=== PATIENT | male | born 1935 | race Caucasian/White ===

== ENCOUNTER → 2020-03-24 10:21 | Outpatient (BNVA) | payer OTHER, SELFPAY | PROVIDERS: Referring Provider Emergency Medicine Emergency Medical Services; Visit Provider Specialist | DX: M25.511 Pain in right shoulder (principal) | CPT/HCPCS: 73030 ==

== ENCOUNTER → 2021-04-12 08:02 | Outpatient (BNVA) | payer OTHER, SELFPAY | PROVIDERS: Visit Provider Specialist | DX: M19.012 Primary osteoarthritis, left shoulder (principal); M19.011 Primary osteoarthritis, right shoulder | CPT/HCPCS: 73030 ==

== ENCOUNTER 2021-08-30 07:39 | Outpatient (CLI) | payer OTHER, SELFPAY ==
--- NOTE | 2021-08-30 | MR_ITS ---
WS: [id number] MRI HEAD WITH CONTRAST TECHNIQUE: Sagittal T1, T2 axial, T2 axial FLAIR, axial susceptibility weighted imaging, axial diffus ion weighted images, and coronal T2 images were obtained. Pre and post-T1 axial and post T1 coronal i mages. ADC and FSPGR images. CLINICAL INFORMATION: MEMORY COMPARISON: None. FINDINGS: No evidence of restricted diffusion to suggest acute ischemia. Ventricular system and basal cisterns are patent. Mild small vessel changes with mild to moderate parenchymal volume loss. Normal posterior fossa. Normal vascular flow voids at the skull base. No extra-axial fluid collections. No evidence o f mass or mass effect. Paranasal sinuses are well aerated. Partial opacification mastoid air cells bi laterally. No hemosiderin on susceptibly weighted images. Advanced disproportionate atrophy involving the temporal lobes and hippocampal formations. This is as ymmetric compared to the frontal and parietal parenchymal volume loss which is mild. Mild small vesse l changes in the monet. No abnormal gadolinium enhancement. Normal optic chiasm and pituitary infundib ulum. Normal dural venous sinuses. MR/MR head wo/w con [id number] IMPRESSION: 1. No evidence of restricted diffusion to suggest acute ischemia. 2. Mild small vessel changes with mild to moderate parenchymal volume loss. 3. Advanced bilateral atrophy involving the temporal lobes and hippocampal for mations. Recommend correlation for neurodegenerative disease including Alzheime r's dementia. Frontal and parietal occipital parenchymal volume is relatively w ell-preserved. 4. Partial opacification mastoid air cells bilaterally. 5. No abnormal gadolinium enhancement. 6. Normal optic chiasm and pituitary infundibulum. 7. No hemosiderin on susceptibly weighted images.
== END 2021-08-30 07:40 | disposition home or self-care (01) ==
LOC: RADSHAW 07:42
PROVIDERS: PCP Emergency Medicine Emergency Medical Services; Visit Provider Emergency Medicine Emergency Medical Services
DX: R41.3 Other amnesia (principal); G31.9 Degenerative disease of nervous system, unspecified
CPT/HCPCS: 70553; A9579

== ENCOUNTER → 2022-02-22 08:10 | Outpatient (BNVA) | payer OTHER, SELFPAY | PROVIDERS: PCP Emergency Medicine Emergency Medical Services; Visit Provider Specialist | DX: Z71.89 Other specified counseling (principal); M19.012 Primary osteoarthritis, left shoulder; M19.011 Primary osteoarthritis, right shoulder | CPT/HCPCS: 20610; J1100; J2795; J3301 ==

== ENCOUNTER → 2022-05-31 08:07 | Outpatient (BNVA) | payer OTHER, SELFPAY | PROVIDERS: PCP Emergency Medicine Emergency Medical Services; Visit Provider Specialist | DX: M19.011 Primary osteoarthritis, right shoulder (principal); M19.012 Primary osteoarthritis, left shoulder | CPT/HCPCS: 20610; J1100; J2795; J3301 ==

== ENCOUNTER 2022-06-01 16:16 | Emergency (ER) | payer OTHER, SELFPAY ==
[2022-06-01 16:26] VITALS: BP 176/82; PULSE 74; RESP 16; TEMP 36.9; O2SAT 98
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
--- NOTE | 2022-06-01 16:29 | ECG_ITS ---
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 Measurements Intervals [place] Rate: 88 P: 48 MT: 154 QRS: -7 QRSD: 87 T: 62 QT: 331 QTc: 401 Interpretive Statements SINUS RHYTHM MODERATE VOLTAGE CRITERIA FOR LVH, CONSIDER NORMAL VARIANT [MEETS CRITERIA IN ONE OF: R(aVL), S(V1), R(V5), R(V5/V6)+S(V1)] POSSIBLE ANTERIOR MYOCARDIAL INFARCTION , OF INDETERMINATE AGE [30 ms Q WAVE IN V3/V4, OR R < 0.2 mV IN V4] No previous ECG available for comparison Electronically Signed On 06-01-2022 19:09:42 CDT by Froy Lizarraga M.D. [id number]
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
--- NOTE | 2022-06-01 16:55 | PC.NURSE ---
PT PLACED ON CONTINUOUS NIBP, SPO2, AND CM
[2022-06-01 17:00] VITALS: BP 161/85; PULSE 94; O2SAT 97
[2022-06-01] MEDS: ondansetron 2 mg/ML SDV 2 mL 4 MG IVP (17:04)
[2022-06-01 18:09] LABS: Basophils # 0.1 10^3/uL (0.0-0.1); Basophils % 0.2 %; Hematocrit 44.4 % (42.0-52.0); Hemoglobin 14.4 g/dL (11.7-16.6); Lymphocytes # 0.7 10^3/uL (0.8-4.8); Lymphocytes % 2.4 %; Mean Corpuscular HGB Conc 32.4 g/dL (30.0-36.0); Mean Corpuscular Hemoglobin 30.4 pg (28.0-34.0); Mean Corpuscular Volume 93.7 fl (80-94); Mean Platelet Volume 9.6 fL (7.4-10.4); Monocytes # 1.9 10^3/uL (0.2-0.9); Monocytes % 6.4 %; Neutrophils % 89.7 %; Nucleated Red Blood Cells % 0 %; Platelet Count 594 10^3/cmm (130-400); Red Blood Count 4.74 10^6/uL (4.1-5.3); Red Cell Distribution Width 13.2 % (12.1-15.1)
[2022-06-01 18:12] LABS: White Blood Count 30.2 10^3/uL (4.0-10.0)
[2022-06-01 18:24] LABS: Alanine Aminotransferase 38 U/L (0-41); Albumin Level 3.8 g/dL (3.5-5.2); Alkaline Phosphatase 79 U/L (40-130); Anion Gap 14.4 (5-19); Aspartate Amino Transferase 34 U/L (0-40); Blood Urea Nitrogen 25 mg/dL (8-23); Calcium 9.1 mg/dL (8.5-10.5); Carbon Dioxide 22 mmol/L (22-29); Chloride 104 mmol/L (98-107); Globulin 2.9 g/dL (1.3-4.6); Glucose 130 mg/dL (65-115); Osmolality Calculated 288 mOsm/kg (285-295); Potassium 4.4 mmol/L (3.5-5.1); Sodium 136 mmol/L (136-145); Total Bilirubin 0.6 mg/dL (0.15-1.2); Total Protein 6.7 g/dL (6.6-8.7)
[2022-06-01 18:30] VITALS: BP 150/77; PULSE 94; RESP 20; O2SAT 97
[2022-06-01] MEDS: fentaNYL 50 mcg/mL INJ 2mL IVP (19:15)
[2022-06-01] MEDS: tetanus-dipt-pertussis 0.5 mL SDV IM (19:15)
== END 2022-06-01 19:29 | disposition home or self-care (01) ==
PROVIDERS: Emergency Provider Family Medicine; PCP Emergency Medicine Emergency Medical Services
DX: Z04.1 Encounter for examination and observation following transport accident (principal)
CPT/HCPCS: 71045; 72040; 73110; 73130; 73610; 80053; 85025; 90471; 90715; 93005; 96374; 96375; 99285; J2405; J3010

== ENCOUNTER → 2022-08-30 08:01 | Outpatient (BNVA) | payer OTHER, SELFPAY | PROVIDERS: PCP Emergency Medicine Emergency Medical Services; Visit Provider Specialist | DX: M19.011 Primary osteoarthritis, right shoulder (principal); M19.012 Primary osteoarthritis, left shoulder; Z71.89 Other specified counseling | CPT/HCPCS: 20610; J1100; J2795; J3301 ==

== ENCOUNTER → 2022-11-29 10:31 | Outpatient (BNVA) | payer OTHER, SELFPAY | PROVIDERS: PCP Emergency Medicine Emergency Medical Services; Visit Provider Specialist | DX: M19.011 Primary osteoarthritis, right shoulder (principal); M19.012 Primary osteoarthritis, left shoulder | CPT/HCPCS: 20610; J2795; J3301 ==

== ENCOUNTER → 2023-02-02 11:44 | Outpatient (BNVA) | payer MEDICARE, SELFPAY | PROVIDERS: PCP Emergency Medicine Emergency Medical Services; Visit Provider Emergency Medicine | DX: R41.0 Disorientation, unspecified (principal) | CPT/HCPCS: 81000 ==

== ENCOUNTER 2023-02-26 10:18 | Outpatient (CLI) | payer OTHER, SELFPAY ==
--- NOTE | 2023-02-26 10:34 | CT_ITS ---
WS: [id number] CT CHEST TECHNIQUE: Contrast enhanced CT of the chest with coronal and sagittal reformatted images. CLINICAL INFORMATION: XRAY SHOWS ABNORMAL AREA TO HILUM (RIGHT) COMPARISON: None. DLP: 194.[address] scans at [facility] use at least one of these dose optimization techniques: automated e xposure control; mA and/or kV adjustment per patient size (includes targeted exams where dose is matc hed to clinical indication); or iterative reconstruction. FINDINGS: Lungs are well aerated. No acute pulmonary infiltrates. No focal pneumonia or pleural fluid. No media stinal or hilar lymphadenopathy. No axillary lymphadenopathy. Hazy groundglass nodule RIGHT lower lob e posterior laterally measuring 5.8 mm. Normal caliber thoracic aorta. Aortic calcification. Coronary calcification. Prominent proximal main pulmonary arteries can be seen with pulmonary arterial hypertension. Coronary calcification. Tiny esophageal hiatal hernia. Partially visualized hepatic cysts. Diffuse fatty infiltration liver. Hepatomegaly. Splenic artery calcification. Adrenal glands are normal. Bilateral renal cysts partiall y visualized. Mild thoracic curve. Mild thoracic kyphosis. Anterior hypertrophic changes thoracic spi ne. Normal caliber upper abdominal aorta. Moderate stenosis at the celiac origin which is patent. SMA is patent. CT/CT chest w con* [id number] IMPRESSION: 1. No mediastinal or hilar lymphadenopathy. 2. Prominent main pulmonary arteries can be seen with pulmonary arterial hyper tension. 3. Lungs are well aerated. No acute pulmonary infiltrates. 4. Slight hazy atelectasis in the lung bases. 5. Hazy groundglass nodule RIGHT lower lobe posterior laterally measuring 5.8 mm. Recommend 6 month follow-up chest CT. 6. Numerous small hepatic cysts partially visualized. This can be followed up with contrast-enhanced CT abdomen pelvis.
[2023-02-26 11:13] LABS: Blood Urea Nitrogen 7 mg/dL (8-23)
[2023-02-26] MEDS: iohexol 350 mg/mL 500 mL Btl (per mL) IV (11:19)
== END 2023-02-26 10:19 | disposition home or self-care (01) ==
LOC: RAD 10:22
PROVIDERS: PCP Emergency Medicine Emergency Medical Services; Visit Provider Emergency Medicine Emergency Medical Services
DX: J98.11 Atelectasis (principal); R91.1 Solitary pulmonary nodule; K76.89 Other specified diseases of liver
CPT/HCPCS: 71260; 82565; 84520; Q9967

== ENCOUNTER → 2023-03-14 09:50 | Outpatient (BNVA) | payer OTHER, SELFPAY | PROVIDERS: PCP Emergency Medicine Emergency Medical Services; Visit Provider Specialist | DX: M19.011 Primary osteoarthritis, right shoulder (principal); M19.012 Primary osteoarthritis, left shoulder | CPT/HCPCS: 20610; J1100; J2795; J3301 ==

== ENCOUNTER 2023-04-02 09:45 | Outpatient (CLI) | payer OTHER, SELFPAY ==
[2023-04-02 10:50] VITALS: BMI 21.4
--- NOTE | 2023-04-02 10:53 | ECG_ITS ---
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 Interpretive Statements NAME OF STUDY: LEXISCAN SESTAMIBI STRESS TEST INDICATION: Dyspnea on exertion PROCEDURE: At the baseline, the blood pressure was 134/58 mmHg with a heart rate of 75 bpm and oxygen saturation 95%. The electrocardiogram showed sinus rhythm, normal axis. Poor anterior R wave progression. The Lexiscan was infused over a period of 20 seconds. A total of 0.4 milligrams of Lexiscan was infused. The stress phase was continued for a total of 5 minutes. Heart rate at the end of the stress phase was 101 bpm, oxygen saturation 95% with a blood pressure 118/48 mmHg. The EKG at the peak infusion revealed sinus tachycardia with no significant ST-T wave changes. Sestamibi was injected 20 seconds after the Lexiscan infusion. Blood pressure at the end of the recovery phase was 128/47 mmHg, oxygen saturation 95% with a heart rate of 94 beats per minute. CONCLUSION: 1. No significant EKG changes with the LexiScan infusion. 2. No LexiScan induced chest pain or cardiac arrhythmia. 3. Normal blood pressure and heart rate response. 4. Sestamibi/sestamibi perfusion scan pending; see separate report. Electronically Signed On 04-09-2023 17:31:07 CDT by Loan Pemberton M.D. [id number]
--- NOTE | 2023-04-02 10:54 | NMCV_ITS ---
NM za perf SPECT r/s* [id number] Garry Duval Age: 87 Gender: M : 1935 Exam Date: 04/02/2023 11:36 Ordering Phys: Garry Strong DO Technologist: STEFAN Forde Exam Location: [facility] Indications: SHORTNESS OF BREATH STRESS TEST Please see separate stress test report in [facility] for full findings IMAGE PROTOCOL Rest/Stress 1 Lexiscan Day Radiopharmaceutical Dose (mCi) Administration Site Administered by Rest: Tc-99m 11.0 IV STEFAN Brennan Sestamibi Stress:Tc-99m 32.8 IV STEFAN Brennan Sestamibi Rest: 02-Apr-2023 60 Discovery 630 Stress: 02-Apr-2023 30 Discovery 630 0.4mg Lexiscan. Supine position only as patient was unable to lay prone. SPECT RESULTS Technical Quality: Excellent Raw Data Analysis: Normal Image Corrections: No attenuation or motion correction applied Summed Stress Score: 0 Summed Rest Score: 2 Summed Difference Score: 0 PERFUSION FINDINGS SPECT images demonstrate homogeneous tracer distribution throughout the myocardium. FUNCTIONAL RESULTS (calculated via Gated SPECT) Stress Image LV EF (%): 69 Stress EDV (mL):70 TID: 0.95 Stress ESV (mL):22 FUNCTIONAL FINDINGS: The left ventricle is normal in size. Transient Ischemia Dilatation of 0.95. The left ventricular ejection fraction is normal with a value of 69%. There is normal left ventricular wall thickening. Normal end-diastolic and end-systolic volumes. IMPRESSIONS 1. Myocardial perfusion imaging is normal. 2. Overall left ventricular systolic function is normal without regional wall motion abnormalities, LVEF=69%. 3. EKG portion of the study will be reported separately. 4. Scan indicates low risk for cardiac events. Loan Pemberton MD (Electronically Signed) Final Date: 02 April 2023 17:31 S
[2023-04-02 12:19] VITALS: BP 128/47; PULSE 95
[2023-04-02] MEDS: regadenoson 0.4 Mg/5 ml Syringe IVP (12:21)
== END 2023-04-02 09:46 | disposition home or self-care (01) ==
LOC: CDL 09:45
PROVIDERS: PCP Emergency Medicine Emergency Medical Services; Visit Provider Emergency Medicine Emergency Medical Services
DX: R06.02 Shortness of breath (principal); R06.09 Other forms of dyspnea
CPT/HCPCS: 36415; 78452; 93017; 96374; A9500; J2785

== ENCOUNTER 2023-05-01 08:03 | Outpatient (CLI) | payer OTHER, SELFPAY ==
--- NOTE | 2023-05-01 08:11 | CT_ITS ---
WS: [id number] CT ABDOMEN AND PELVIS WITH CONTRAST HISTORY: HEPATIC CYSTS TECHNIQUE: Imaging performed of the abdomen and pelvis with IV contrast. Triple phase imaging of the abdomen. Coronal and sagittal reformats are submitted. All CT scans at [facility] use at leas t one of these dose optimization techniques: automated exposure control; mA and/or kV adjustment per patient size (includes targeted exams where dose is matched to clinical indication); or iterative rec onstruction. IV CONTRAST: Omnipaque 350; 100 mL IV. Oral contrast: No DLP: 905.46 mGy.cm COMPARISON: Prior chest CT 02/26/2023. Lower thorax: Lung bases are clear. Heart is normal size. Small hiatal hernia. Liver/biliary system: Normal size liver. There are numerous well-circumscribed low-attenuation masses throughout the liver involving both the LEFT and RIGHT lobes. These do not significantly enhanced. S ome of these are too small to characterize. The largest measures 11 mm. There is at most consistent w ith cyst. No solid mass. No bile duct dilatation. Normal portal vein. Gallbladder: Normal. No gallstones or wall thickening. No pericholecystic fluid. Pancreas: Normal size pancreas and pancreatic duct. No adjacent inflammation. Spleen: Normal size spleen. No mass or infarct. Adrenal glands: Normal. Right kidney: Normal size kidney. Several renal cysts are identified. The largest measures 9.0 x 7.2 x 9.1 cm. No renal obstruction. Left kidney: Normal size LEFT kidney with numerous acquired cysts. No renal obstruction. No solid mas s. Aorta: Moderate atherosclerotic plaque. No aneurysm. Mild stenosis proximal celiac axis. Lymphadenopathy: None. Free fluid: None. GI tract: Normal stomach. No small bowel obstruction. Mild constipation with tortuosity from longstan ding constipation. Normal appendix. There is a loop of colon extending into a patent LEFT inguinal ca nal. No obstructive pattern. Abdominal wall: Unremarkable abdominal wall. No hernia. Pelvis: No free fluid or adenopathy within the pelvis. Asymmetric thickening of the urinary bladder w all. Near diffuse thickening with a small diverticulum posteriorly. Marked prostate gland enlargement encroaching into the bladder. Bladder wall thickening does not appear masslike but is more likely fr om hypertrophy related to outlet obstruction. Heterogeneous prostate gland measures 5.8 x 4.2 cm and extends over a length of 6.3 cm. Bones: Straightening of the normal lumbar lordosis. Disc spaces are narrowed. Degenerative LEFT curva ture. IMPRESSION: 1. Numerous hepatic cysts. Some of these low-attenuation lesions are too small to characterize. No s olid masses are identified. 2. Bilateral renal cysts. 3. LEFT inguinal hernia contains a loop of nonobstructed colon. 4. Marked asymmetric bladder wall thickening and prostate gland enlargement. Bladder wall thickening is probably due to outlet obstruction from prostatic hypertrophy. 5. Moderate atherosclerotic plaque abdominal aorta.
[2023-05-01 08:34] LABS: Blood Urea Nitrogen 5 mg/dL (8-23)
[2023-05-01] MEDS: iohexol 350 mg/mL 500 mL Btl (per mL) IV (08:48)
== END 2023-05-01 08:04 | disposition home or self-care (01) ==
PROVIDERS: PCP Emergency Medicine Emergency Medical Services; Visit Provider Emergency Medicine Emergency Medical Services
DX: K76.89 Other specified diseases of liver (principal); N28.1 Cyst of kidney, acquired; K40.90 Unilateral inguinal hernia, without obstruction or gangrene, not specified as recurrent; N40.0 Benign prostatic hyperplasia without lower urinary tract symptoms; N32.9 Bladder disorder, unspecified; I70.0 Atherosclerosis of aorta
CPT/HCPCS: 74177; 82565; 84520; Q9967

== ENCOUNTER → 2023-05-15 10:29 | Outpatient (BNVA) | payer OTHER, SELFPAY | PROVIDERS: PCP Emergency Medicine Emergency Medical Services; Visit Provider Specialist | DX: M19.011 Primary osteoarthritis, right shoulder (principal); M19.012 Primary osteoarthritis, left shoulder; M12.811 Other specific arthropathies, not elsewhere classified, right shoulder; M12.812 Other specific arthropathies, not elsewhere classified, left shoulder | CPT/HCPCS: 73030; 99213 ==

== ENCOUNTER 2023-06-20 17:25 | Observation (INO) | payer OTHER, SELFPAY ==
[2023-06-20] VITALS (9 sets, daily range): BP systolic 146–174; BP diastolic 59–74; PULSE 96–111; RESP 15–27; TEMP 36.2–36.4; O2SAT 95–99; BMI 22.1
--- NOTE | 2023-06-20 18:52 | W.ED.GENADLT ---
HPI - General Adult General: Chief complaint: General Medical Stated complaint: possible reaction from meds Time Seen by Provider: 06/20/23 18:52 History of Present Illness: 87-year-old male presents emergency department with his family. Family members state that over the previous 4 days he has had increased confusion, fatigue and malaise. He does have an intermittent nonproductive cough. They state that he has recently been seen by his primary care provider at [facility] and was prescribed Flomax and a medication for his dementia. His family members are concerned that his increased confusion may be from an allergic reaction to the new medications. The family members state that despite his diagnosis of dementia he still lives at home by his self but his son is there multiple times throughout the day. The patient is a poor historian given his clinical presentation and his past medical history. Review of Systems General: Reports: ROS unobtainable due to medical condition (Dementia) [facility] ED PFSH: Medical History (Updated 06/20/23 @ 21:16 by Thad Carroll MD) Hypertension Social History Smoking and tobacco/nicotine status: never used tobacco/nicotine Alcohol intake: never Substance/Drug Use: never Physical Exam Const: GENERAL APPEARANCE: other (Unkept, malodorous, patient has stool to his bilateral lower extremities an) ORIENTATION/CONSCIOUSNESS: Yes oriented to person HENMT: COMMON NORMALS: normocephalic, atraumatic and moist oral mucous membranes HEAD & SCALP: normocephalic and atraumatic Eye: COMMON NORMALS: Equal, round and reactive pupils present PUPIL: Yes Equal, round and reactive pupils present Neck/C-Spine: COMMON NORMALS: no meningeal signs Resp: AUSCULTATION: rhonchi right lower Cardio: COMMON NORMALS: regular rhythm, S1 normal heart sound present, S2 normal heart sound present and Peripheral pulses 2+ throughout RATE: tachycardic RHYTHM: regular rhythm HEART SOUNDS: S1 normal heart sound present and S2 normal heart sound present PERIPHERAL PULSES: Peripheral pulses 2+ throughout GI: COMMON NORMALS: Normal to inspection, nondistended, normoactive bowel sounds present, Soft to palpation and non-tender PALPATION: Yes Soft to palpation Back/Pelvis: COMMON NORMALS: thoracic and lumbar spine normal to inspection, no thoracic nor lumbar tenderness and thoraco-lumbar ROM normal Extremity: COMMON NORMALS: normal to inspection, full ROM and capillary refill normal Neuro: SENSORIUM/ORIENTATION: Yes oriented to person and Yes Orientation impaired MENINGEAL SIGNS: Yes no meningeal signs MOTOR EXAM: 5/5 motor strength present throughout Psych: COMMON NORMALS: mental status grossly normal and cooperative MEMORY/COGNITION: Yes memory grossly intact and Yes cognition grossly intact Skin: COMMON NORMALS: no rashes or lesions noted GENERAL SKIN EXAM: no rashes or lesions noted Course Vital Signs: Vital signs: Vital Signs Temperature 97.1 F L 06/20/23 17:59 Pulse Rate 106 H 06/20/23 20:15 Respiratory Rate 21 H 06/20/23 20:15 Blood Pressure 155/74 06/20/23 20:15 Pulse Oximetry 99 06/20/23 20:15 Oxygen Delivery Me thod Room Air 06/20/23 20:15 MDM - General Adult Medical Decision Making Physical exam completed and documented, laboratory evaluation obtained to include a CBC for evaluation of infection, CMP to evaluate for electrolyte abnormalities and renal function, we will obtain a CT scan of the head given his mental status changes. I do not suspect this is a reaction to his new medications as he does appear to be significantly unkept and malodorous I suspect this is most likely given his clinical findings and physical exam a community-acquired pneumonia. I will obtain a twelve-lead EKG as well as a chest x-ray for evaluation. Differential Diagnosis CVA, electrolyte abnormality, infection, Medical Records I reviewed the patient's medical records. Lab Data I reviewed the patient's lab results. 06/20/23 19:14 06/20/23 19:[address] 06/20/23 18:56 IMPRESSION: 1. Negative for intracranial hemorrhage mass effect.. 2. Moderate diffuse white matter disease likely reflecting chronic microvascular ischemic changes. 3. 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 Laboratory Results WBC 27.29 10^3/uL (3.29-11.43) H 06/20/23 19:14 RBC 4.83 10^6/uL (3.85-5.65) 06/20/23 19:14 Hgb 15.10 g/dL (11.27-16.99) 06/20/23 19:14 Hct 44.9 % (37-53) 06/20/23 19:14 MCV 93.0 fl (82-101) 06/20/23 19:14 MCH 31.3 pg (27-33) 06/20/23 19:14 MCHC 33.6 g/dL (30-55) 06/20/23 19:14 RDW 12.9 % (12.1-15.1) 06/20/23 19:14 Plt Count 598 10^3/cmm (157-399) H 06/20/23 19:14 MPV 9.1 fL (7.4-10.4) 06/20/23 19:14 Neut % (Auto) 89.6 % 06/20/23 19:14 Lymph % (Auto) 5.5 % 06/20/23 19:14 Isabella % (Auto) 2.9 % 06/20/23 19:14 Eos % (Auto) 0.2 % 06/20/23 19:14 Baso % (Auto) 0.3 % 06/20/23 19:14 Neut # (Auto) 24.47 10^3/uL (1.8-7.7) H 06/20/23 19:14 Lymph # (Auto) 1.5 10^3/uL (0.8-4.8) 06/20/23 19:14 Isabella # (Auto) 0.8 10^3/uL (0.2-0.9) 06/20/23 19:14 Eos # (Auto) 0.1 10^3/uL (0.0-0.8) 06/20/23 19:14 Baso # (Auto) 0.1 10^3/uL (0.0-0.1) 06/20/23 19:14 Nucleated RBC % (auto) 0 % 06/20/23 19:14 Nucleated RBCs # 0.0 /100WBC 06/20/23 19:14 Sodium 133 mmol/L (136-145) L 06/20/23 19:14 Potassium 3.5 mmol/L (3.5-5.1) 06/20/23 19:14 Chloride 95 mmol/L (98-107) L 06/20/23 19:14 Carbon Dioxide 23 mmol/L (22-29) 06/20/23 19:14 Anion Gap 18.5 (5-19) 06/20/23 19:14 BUN 9 mg/dL (8-23) 06/20/23 19:14 Creatinine 1.0 mg/dL (0.7-1.2) 06/20/23 19:14 GFR Calculation Not Reportable 06/20/23 19:14 Glucose 249 mg/dL (65-115) H 06/20/23 19:14 POC Glucose 251 mg/dL (70-110) H 06/20/23 20:11 Calculated Osmolality 283 mOsm/kg (285-295) L 06/20/23 19:14 Lactic Acid 3.7 mmol/L (0.5-2.2) H 06/20/23 19:14 Calcium 9.4 mg/dL (8.5-10.5) 06/20/23 19:14 Total Bilirubin 0.9 mg/dL (0.15-1.2) 06/20/23 19:14 AST 26 U/L (0-40) 06/20/23 19:14 ALT 28 U/L (0-41) 06/20/23 19:14 Alkaline Phosphatase 82 U/L (40-130) 06/20/23 19:14 Troponin T Baseline 15 ng/L (0-15) 06/20/23 19:14 Total Protein 7.0 g/dL (6.6-8.7) 06/20/23 19:14 Albumin 4.6 g/dL (3.5-5.2) 06/20/23 19:14 Globulin 2.4 g/dL (1.3-4.6) 06/20/23 19:14 Procalcitonin 0.06 ng/mL (0-0.5) 06/20/23 19:14 Urine Color Yellow (Yellow) 06/20/23 20:29 Urine Appearance Clear (CLEAR) 06/20/23 20:29 Urine pH 5 (5-7) 06/20/23 20:29 Ur Specific [place] 1.015 (1.005-1.030) 06/20/23 20:29 Urine Protein Neg (Negative) 06/20/23 20:29 Urine Glucose (UA) 4+ (Normal) H 06/20/23 20:29 Urine Ketones 1+ (Negative) H 06/20/23 20:29 Urine Blood 2+ (Negative) H 06/20/23 20:29 Urine Nitrate Negative (Negative) 06/20/23 20:29 Urine Bilirubin Neg (Negative) 06/20/23 20:29 Urine Urobilinogen Neg mg/dL (Negative) 06/20/23 20:29 Ur Leukocyte Esterase Negative (Negative) 06/20/23 20:29 Urine RBC 5-10 /hpf (0-2) H 06/20/23 20:29 Urine WBC None /hpf (0-5) 06/20/23 20:29 Ur Squamous Epith Cells None /hpf (0-5) 06/20/23 20:29 Amorphous Sediment Not Reportable 06/20/23 20:29 Urine Bacteria Trace /hpf (NONE) 06/20/23 20:29 Urine Opiates Screen Negative ng/mL (Negative) 06/20/23 20:29 Ur Barbiturates Screen Negative ng/mL (Negative) 06/20/23 20:29 Ur Phencyclidine Scrn Negative ng/mL (Negative) 06/20/23 20:29 Ur Amphetamines Screen Negative ng/mL (Negative) 06/20/23 20:29 U Benzodiazepines Scrn Negative ng/mL (Negative) 06/20/23 20:29 Urine Cocaine Screen Negative ng/mL (Negative) 06/20/23 20:29 U Marijuana (THC) Screen Negative ng/mL (Negative) 06/20/23 20:29 XR interpretation done by ED provider, pending radiology final review ED provider radiology interpretation(s): Possible community-acquired pneumonia EKG Data Twelve-lead EKG was obtained at 2038 and reviewed at 2041, twelve-lead EKG demonstrates sinus tachycardia with a ventricular rate of 102 bpm, NH interval 170, QRS duration 84, QT 351, QTc 410. There is no ST elevation or depression at present to indicate infarction or ischemia.: Computer generated interpretation: Head CT 06/20/23 18:56 IMPRESSION: 1. Negative for intracranial hemorrhage mass effect.. 2. Moderate diffuse white matter disease likely reflecting chronic microvascular ischemic changes. 3. 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 Discharge Plan Discharge Patient Disposition: Admitted As Inpatient Clinical Impression: PNA (pneumonia), AMS (altered mental status) Condition: Stable Prescriptions: No Action simvastatin 40 mg tablet 40 mg PO DAILY amlodipine 10 mg tablet 10 mg PO DAILY lisinopril 40 mg tablet 40 mg PO DAILY Men's Daily Multivit-Mineral 0.4-600 mg-mcg tablet PO meloxicam 15 mg tablet 15 mg PO DAILY Qty: 30 0RF Rx Instructions: TAKE 1 TABLET DAILY Referrals: Garry Strong DO [Primary Care Provider] - Coding Level of Care Code ED School Business Administrator for Malaika Palma
--- NOTE | 2023-06-20 18:56 | CTR_ITS ---
PROCEDURE INFORMATION: Exam: CT Head Without Contrast Exam date and time: 06/20/2023 7:22 PM Age: 87 years old Clinical indication: Altered mental status/memory loss; Patient HX: Per family, patient confused and unable to walk today. ; Additional info: AMS TECHNIQUE: Imaging protocol: Computed tomography of the head without contrast. Radiation optimization: All CT scans at this facility use at least one of these dose optimization techniques: automated exposure control; mA and/or kV adjustment per patient size (includes targeted exams where dose is matched to clinical indication); or iterative reconstruction. REPORTING DATA: Count of CT and Cardiac NM exams in prior 12 months: This patient has received 3 known CTs and 0 known cardiac nuclear medicine studies in the 12 months prior to the current study. COMPARISON: MR head wo/w con [id number] 08/30/2021 8:08 AM RADIATION DOSE METRICS: Total DLP (mGy-cm): 1079.88 FINDINGS: Brain: Moderate diffuse white matter disease likely reflecting chronic microvascular ischemic changes. 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 No fluid levels. Mastoid air cells: Visualized mastoid air cells are well aerated. Bones/joints: Unremarkable. No acute fracture. Soft tissues: Unremarkable. CT/CT head wo con* [id number] IMPRESSION: 1. Negative for intracranial hemorrhage mass effect.. 2. Moderate diffuse white matter disease likely reflecting chronic microvascular ischemic changes. 3. 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
[2023-06-20 19:22] LABS: Basophils # 0.1 10^3/uL (0.0-0.1); Basophils % 0.3 %; Eosinophils # 0.1 10^3/uL (0.0-0.8); Eosinophils % 0.2 %; Hematocrit 44.9 % (37-53); Lymphocytes # 1.5 10^3/uL (0.8-4.8); Lymphocytes % 5.5 %; Mean Corpuscular HGB Conc 33.6 g/dL (30-55); Mean Corpuscular Hemoglobin 31.3 pg (27-33); Mean Platelet Volume 9.1 fL (7.4-10.4); Monocytes # 0.8 10^3/uL (0.2-0.9); Monocytes % 2.9 %; Neutrophils # 24.47 10^3/uL (1.8-7.7); Neutrophils % 89.6 %; Nucleated Red Blood Cells % 0 %; Platelet Count 598 10^3/cmm (157-399); Red Blood Count 4.83 10^6/uL (3.85-5.65); Red Cell Distribution Width 12.9 % (12.1-15.1); White Blood Count 27.29 10^3/uL (3.29-11.43)
[2023-06-20 19:51] LABS: Lactic Sepsis W/Reflex 3.7 mmol/L (0.5-2.2)
[2023-06-20 19:52] LABS: Troponin(5th) Baseline 15 ng/L (0-15)
[2023-06-20 19:53] LABS: Alanine Aminotransferase 28 U/L (0-41); Albumin Level 4.6 g/dL (3.5-5.2); Alkaline Phosphatase 82 U/L (40-130); Anion Gap 18.5 (5-19); Aspartate Amino Transferase 26 U/L (0-40); Blood Urea Nitrogen 9 mg/dL (8-23); Calcium 9.4 mg/dL (8.5-10.5); Carbon Dioxide 23 mmol/L (22-29); Chloride 95 mmol/L (98-107); Globulin 2.4 g/dL (1.3-4.6); Glucose 249 mg/dL (65-115); Osmolality Calculated 283 mOsm/kg (285-295); Potassium 3.5 mmol/L (3.5-5.1); Sodium 133 mmol/L (136-145); Total Bilirubin 0.9 mg/dL (0.15-1.2)
[2023-06-20 19:59] LABS: Procalcitonin 0.06 ng/mL (0-0.5)
[2023-06-20 20:35] LABS: Glucose Point of Care 251 mg/dL (70-110)
--- NOTE | 2023-06-20 20:36 | XRR_ITS ---
PROCEDURE INFORMATION: Exam: XR Chest Exam date and time: 06/20/2023 8:41 PM Age: 87 years old Clinical indication: Condition or disease; Other: AMS; Additional info: Ams/fever TECHNIQUE: Imaging protocol: Radiologic exam of the chest. Views: 1 view. COMPARISON: CT chest w con* [id number] 02/26/2023 11:15 AM FINDINGS: Lungs: Unremarkable. No consolidation. Pleural spaces: Unremarkable. No pleural effusion. No pneumothorax. Heart/Mediastinum: Unremarkable. No cardiomegaly. Bones/joints: Unremarkable. XR/XR chest 1V portable [id number] IMPRESSION: No acute findings.
--- NOTE | 2023-06-20 20:39 | ECG_ITS ---
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 Measurements Intervals [place] Rate: 102 P: 51 [place]: 170 QRS: 22 QRSD: 84 T: 83 QT: 351 QTc: 459 Interpretive Statements SINUS TACHYCARDIA NONSPECIFIC T-WAVE ABNORMALITY ABNORMAL RHYTHM ECG Compared to ECG 06/01/2022 16:38:03 T-wave abnormality now present Sinus rhythm no longer present Myocardial infarct finding no longer present Electronically Signed On 06-21-2023 1:07:52 CDT by Froy Lizarraga M.D. [id number]
[2023-06-20 20:45] LABS: Amphetamines Screen Urine Negative (Negative); Barbiturates Screen Urine Negative (Negative); Benzodiazepines Screen Urine Negative (Negative); Cocaine Screen Urine Negative (Negative); Opiate Screen Urine Negative (Negative); PCP Screen Urine Negative (Negative); THC Screen Urine Negative (Negative)
[2023-06-20 20:53] LABS: Add Urine Culture? No; Add Urine Microscopic? YES; Bacteria Urine TRACE /hpf; Bilirubin Urine Neg (Negative); Blood Urine 2+ (Negative); Glucose Urine UA 4+ (Normal); Ketones Urine 1+ (Negative); Leukocyte Esterase Urine Negative (Negative); Nitrate Urine Negative (Negative); Protein Urine Neg (Negative); Specific Gravity, Urine 1.015 (1.005-1.030); Urine Appearance Clear (CLEAR); Urine Color Yellow (Yellow); Urobilinogen Urine Neg (Negative); pH Urine 5 (5-7)
[2023-06-20 21:22] LABS: Reflex Lactate Order REFLEX LACTIC ORDERD
[2023-06-20 22:00] LABS: Troponin 5 2HR 25.52 ng/L (0-15)
[2023-06-20 22:01] LABS: Troponin 5 2HR Delta 10.52 ABS# (0-10)
[2023-06-20] MEDS: cefTRIAXone 2,000 MG in sodium chloride 0.9% (plus) 50 ML 100 MG IV (22:07)
[2023-06-20 22:11] LABS: Lactic Acid level (Lactate) 3.3 mmol/L (0.5-2.2)
[2023-06-20] MEDS: sodium chloride 0.9% 1,000 ML 75 ML IV (22:53)
[2023-06-20] MEDS: famotidine 20 mg/2 mL INJ IVP (22:53)
[2023-06-20] MEDS: enoxaparin 40 mg/0.4 mL Syringe SUBCUT (22:53)
--- NOTE | 2023-06-20 22:54 | PM.HP ---
Providers/Chief Complaint Admitting Physician: Kala Sosa MD Primary Care Provider: Garry Strong DO Chief Complaint: possible reaction from meds History of Present Illness Garry Duval Jr is a 87 year old male with history of hypertension hyperlipidemia BPH early dementia was brought in by the family for an episode of shortness of breath confusion and dizziness at home this afternoon. As per the son he thought he was having an allergic reaction secondary to the medications that were started today from the [facility] for BPH and dementia. He slept for most of the day. Usually he lives alone and is active around the house and walks without support. There is no history of fever cold cough chest pain shortness of breath nausea vomiting diarrhea or urinary complaints. Review of Systems Narrative: As per HPI Medications/Allergies Home Medications Medication Instructions Recorded Confirmed Last Taken Type amlodipine 10 mg tablet 10 mg PO DAILY 03/24/20 05/15/23 Unknown History lisinopril 40 mg tablet 40 mg PO DAILY 03/24/20 05/15/23 Unknown History multivit with minerals-folic tab PO 03/24/20 05/15/23 Unknown History acid-lycopene 0.4 mg-600 mcg tablet (Men's Daily Multivitamin-Mineral) simvastatin 40 mg tablet 40 mg PO DAILY 03/24/20 05/15/23 Unknown History meloxicam 15 mg tablet 15 mg PO DAILY #30 tabs 10/05/20 05/15/23 Unknown Rx Allergies Allergy/AdvReac Type Severity Reaction Status Date / Time No Known Allergies Allergy Verified 05/15/23 10:46 PFSH Acute PFSH: Medical History (Updated 06/20/23 @ 23:02 by Kala Sosa MD) Hypertension Social History Smoking and tobacco/nicotine status: never used tobacco/nicotine Alcohol intake: never Substance/Drug Use: never Vitals/I&O/Wt Last Vital Signs Temp 97.5 F L 06/20/23 22:20 Pulse 103 H 06/20/23 22:20 Resp 17 06/20/23 22:20 BP 148/69 06/20/23 22:20 Pulse Ox 95 06/20/23 22:20 O2 Del Method Room Air 06/20/23 22:20 06/20/23 06/20/23 06/20/23 06:59 14:59 22:59 Intake Total 50 / 50 Balance 50 / 50 Weight last 48 hrs Weight 68.039 kg Physical Exam Narrative: He is alert awake oriented x3 not in acute distress Chest clear to auscultation bilaterally Cardiovascular normal heart sounds no murmurs Abdomen soft nontender nondistended normal bowel sounds Extremities no edema noted bilaterally lower extremity Data 06/20/23 19:14 06/20/23 19:14 Micro: Microbiology 06/20/23 19:49 Blood Culture - Preliminary Blood SPECIMEN COLLECTED 06/20/23 19:44 Blood Culture - Preliminary Blood SPECIMEN COLLECTED CT Head: Radiologist's impression: No acute findings CXR: Radiologist's impression: No acute findings EKG 1: My Interpretation: Sinus tachycardia at 102 bpm Normal axis No acute ST-T changes A&P Assessment and plan (1) AMS (altered mental status): (2) Shortness of breath: Plan 87 year old male with history of hypertension hyperlipidemia BPH early dementia was brought in by the family for an episode of shortness of breath confusion and dizziness at home this afternoon after he took the new medications prescribed by the [facility] and was found to have lactic acid 3.3 WBCs 27.2 and platelets of 598 Confusion shortness of breath and dizziness likely secondary to polypharmacy.. Symptoms resolved on arrival to ER Will monitor for now No active source of infection detected Leukocytosis and thrombocytosis old as compared to 05/24, etiology unknown Elevated lactic acid could be secondary to dehydration, will give IV fluids normal saline at 75 mL/h. Hold off on antibiotics for now Troponins trending up, no active chest pain, EKG within normal limits Will monitor and follow-up troponins. Last stress test done September 2022. Resume home medications except for dementia and BPH. IV Pepcid 20 mg twice a day for stress ulcer prophylaxis Subcutaneous Lovenox 40 mg daily for DVT prophylaxis Needs social work consult in a.m. for discussion about assisted living. He is full code for now as per discussion with the son Balta Duval. Attestations Medical Necessity Statement*: He needs less than 2 days of hospitalization. He is here for observation for an acute confusion and shortness of breath. Time Spent in Patient Care: 30 minutes Coding Level of Care Code Acute Code for g Fwd Diagnoses AMS (altered mental status) R41.82 Shortness of breath R06.02 Time Spent (min) 30
[2023-06-21] VITALS: BP 153/71; PULSE 97; RESP 18; TEMP 36.4; O2SAT 97
--- NOTE | 2023-06-21 00:58 | ECG_ITS ---
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 Measurements Intervals [place] Rate: 97 P: 52 MA: 177 QRS: 20 QRSD: 91 T: 74 QT: 350 QTc: 445 Interpretive Statements SINUS RHYTHM NONSPECIFIC T-WAVE ABNORMALITY Compared to ECG 06/20/2023 20:39:47 Sinus tachycardia no longer present T-wave abnormality still present Electronically Signed On 06-21-2023 1:10:23 CDT by Froy Lizarraga M.D. [id number]
[2023-06-21 01:22] LABS: Troponin 5 6HR 32.61 ng/L (0-15)
[2023-06-21 01:24] LABS: Troponin 5 6HR Delta 17.61 ng/L (0-12)
[2023-06-21 04:00] VITALS: BP 150/66; PULSE 101; RESP 18; TEMP 36.5; O2SAT 96
[2023-06-21 05:44] LABS: Basophils % 0.1 %; Hematocrit 39.5 % (37-53); Lymphocytes # 0.8 10^3/uL (0.8-4.8); Lymphocytes % 6.2 %; Mean Corpuscular HGB Conc 34.2 g/dL (30-55); Mean Corpuscular Hemoglobin 31.5 pg (27-33); Mean Corpuscular Volume 92.3 fl (82-101); Mean Platelet Volume 9.2 fL (7.4-10.4); Monocytes # 0.6 10^3/uL (0.2-0.9); Monocytes % 4.6 %; Neutrophils # 11.87 10^3/uL (1.8-7.7); Neutrophils % 88.2 %; Nucleated Red Blood Cells % 0 %; Platelet Count 375 10^3/cmm (157-399); Red Blood Count 4.28 10^6/uL (3.85-5.65); Red Cell Distribution Width 12.7 % (12.1-15.1); White Blood Count 13.46 10^3/uL (3.29-11.43)
[2023-06-21 05:55] VITALS: PULSE 100
[2023-06-21 06:15] LABS: Alanine Aminotransferase 22 U/L (0-41); Albumin Level 3.9 g/dL (3.5-5.2); Alkaline Phosphatase 67 U/L (40-130); Anion Gap 15.9 (5-19); Aspartate Amino Transferase 21 U/L (0-40); Blood Urea Nitrogen 9 mg/dL (8-23); Calcium 9.1 mg/dL (8.5-10.5); Carbon Dioxide 23 mmol/L (22-29); Chloride 98 mmol/L (98-107); Globulin 2.3 g/dL (1.3-4.6); Glucose 141 mg/dL (65-115); Osmolality Calculated 277 mOsm/kg (285-295); Potassium 3.9 mmol/L (3.5-5.1); Sodium 133 mmol/L (136-145); Total Bilirubin 0.5 mg/dL (0.15-1.2); Total Protein 6.2 g/dL (6.6-8.7)
[2023-06-21 06:16] LABS: NT Pro B Type Natriuretic Pept 320 pg/mL (0-450)
[2023-06-21 06:21] LABS: Estmated Average Glucose 100; Hemoglobin A1C 5.1 % (4.0-6.0)
[2023-06-21 07:02] VITALS: BP 139/65; PULSE 107; RESP 16; TEMP 36.6; O2SAT 92
--- NOTE | 2023-06-21 07:33 | PC.PHAR ---
Addendum entered by Janel Alex 06/21/23 08:43: medications entered are [facility] list [facility] Original Note: pt unable to verify medications-faxed [facility] for [facility]
--- NOTE | 2023-06-21 09:31 | PC.CHAP ---
Pastoral Care Encounter/Spiritual Assessment Type of Contact [] Declined business operations manager visit [] Patient/Family/Request visit [] Outpatient visit [] Follow-up visit [] Physician referral [] Code/Alert [x] Routine visit [] Staff referral [] Actively dying [] Patient sleeping [] Family support [] [] Out of room [] Palliative care [] [] Receiving care in room [] Pre-surgical visit [] Trauma [] Long length of stay [] ICU visit [] Other: Relational/Emotional Strength [] Patient feels connected with others/family/visitors/staff [x] Distress [] Loneliness/isolation [x] Abandonment Spirituality of Patient x[] Person of Cordelia [] Attends Advent of their Cordelia [x] Believes in Prayer [] Reads Bible or Buddhist materials [] There are Spiritual issues to be addressed Shift Stacker Interventions [x] Prayer [x] Active listening [x] Non-anxious presence [x] Spiritual/emotional support [] Crisis/trauma care [] Spiritual counseling [] Bereavement support [] Provided bereavement packet [] Provided Bible/devotional materials [] Provided toy/stuffed animal, coloring book to patient or family member [] Provided Communion [] Anointing/[place] [] Salvation [x] Completed spiritual assessment [] Other: Impact on Illness or Injury [] Angry [] Fearful [x] Anxious [] Often cries [] Exhaustion [] Unable to work [] Unable to attend restoration [] Unable to walk/stand [] Unable to read [] Unable to drive [] Unable to eat/drink [] Unable to sleep [] Unable to be with family [] Patient intubated [] Other: Summary Time spent with patient 5 min
--- NOTE | 2023-06-21 10:40 | P.DS_ITS ---
Discharge Providers Date of Admission: 06/20/23 22:20 Date of Discharge: June 21, 2023 Attending Provider at Admission: Kala Sosa MD Attending Provider at Discharge: Simba Lai MD Primary Care Provider: Garry Strong DO Diagnoses at Discharge Discharge Diagnosis (1) AMS (altered mental status): Status: Acute (2) Shortness of breath: Status: Acute Reason for Visit Reason for Visit: possible reaction from meds Brief History: History as per HPI: Garry Duval Jr is a 87 year old male with history of hypertension hyperlipidemia BPH early dementia was brought in by the family for an episode of shortness of breath confusion and dizziness at home this afternoon.? As per the son he thought he was having an allergic reaction secondary to the medications that were started today from the [place] [facility] for BPH and dementia.? He slept for most of the day.? Usually he lives alone and is active around the house and walks without support.? There is no history of fever cold cough chest pain shortness of breath nausea vomiting diarrhea or urinary complaints. Hospital Course Hospital Course Patient was admitted for further evaluation and management. As per the son 2 new medications were donepezil 5 mg daily and Flomax 0.4. Patient has been drinking less water as he was told by his primary that he is developing low sodium levels because of excess water intake. Currently he is not drinking any water and mostly drinks juice and coffee just not more than 1 L a day. Patient was admitted. Various infectious causes were ruled out including UTI, pneumonia. Patient remained on room air and afebrile during hospitalization. Patient was able to walk around in the hospital by himself without any difficulty though he remained slightly confused with AO x2-3 which as per the son is his baseline. We discussed that patient should be drinking at least 2 L of fluid daily to maintain his hydration and renal functions. We also discussed symptoms could be secondary to first pill hypotension from Flomax. Son verbalized understanding. We discussed about safe discharge planning and he wanted to discharge patient home with home health. Home health is being arranged. He has been discharged in hemodynamically stable condition with advised to take Flomax 0.4 mg daily, lisinopril 40 mg daily, metoprolol 25 mg twice daily has been added to his medication list and amlodipine 10 mg daily has been stopped as patient is also on statin. He is continued on donepezil 5 mg nightly and Celexa 10 mg daily has been added as well. Physical Exam Narrative: He is alert awake oriented x2-3, slightly confused not in acute distress Chest clear to auscultation bilaterally Cardiovascular normal heart sounds no murmurs Abdomen soft nontender nondistended normal bowel sounds Extremities no edema noted bilaterally lower extremity Discharge Data Studies Completed and Pending Completed Studies During Hospitalization Category Date Time Status CT head wo con* [id number] Stat Cat Scan 06/20/23 18:56 Completed XR chest 1V portable [id number] Stat Exams 06/20/23 20:36 Completed Pending at discharge Category Date Time Status B12 [Vitamin B12] Routine Lab 06/21/23 05:15 Received Bacterial Antigen Stat Lab 06/21/23 10:12 Received Blood Culture Stat Lab 06/20/23 19:49 Results Complete Blood Count w/Auto AM LABS Lab 06/22/23 04:00 Ordered Comprehensive Metabolic Panel AM LABS Lab 06/22/23 04:00 Ordered Folate Level AM LABS Lab 06/22/23 04:00 Ordered Lipid Profile w/VLDL Routine Lab 06/22/23 04:00 Ordered MAG [Magnesium] AM LABS Lab 06/22/23 04:00 Ordered MAG [Magnesium] AM LABS Lab 06/23/23 04:00 Ordered MAG [Magnesium] AM LABS Lab 06/24/23 04:00 Ordered TIBC [Total Iron Binding Capacity] Routine Lab 06/21/23 05:15 Received Thyroid Stimulating Hormone Routine Lab 06/21/23 05:15 Received Radiology Impressions Head CT 06/20/23 18:56 IMPRESSION: 1. Negative for intracranial hemorrhage mass effect.. 2. Moderate diffuse white matter disease likely reflecting chronic microvascular ischemic changes. 3. 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 Laboratory Results WBC 13.46 10^3/uL (3.29-11.43) H 06/21/23 05:15 RBC 4.28 10^6/uL (3.85-5.65) 06/21/23 05:15 Hgb 13.50 g/dL (11.27-16.99) 06/21/23 05:15 Hct 39.5 % (37-53) 06/21/23 05:15 MCV 92.3 fl (82-101) 06/21/23 05:15 MCH 31.5 pg (27-33) 06/21/23 05:15 MCHC 34.2 g/dL (30-55) 06/21/23 05:15 RDW 12.7 % (12.1-15.1) 06/21/23 05:15 Plt Count 375 10^3/cmm (157-399) D 06/21/23 05:15 MPV 9.2 fL (7.4-10.4) 06/21/23 05:15 Neut % (Auto) 88.2 % 06/21/23 05:15 Lymph % (Auto) 6.2 % 06/21/23 05:15 [place] % (Auto) 4.6 % 06/21/23 05:15 Eos % (Auto) 0.0 % 06/21/23 05:15 Baso % (Auto) 0.1 % 06/21/23 05:15 Neut # (Auto) 11.87 10^3/uL (1.8-7.7) H 06/21/23 05:15 Lymph # (Auto) 0.8 10^3/uL (0.8-4.8) 06/21/23 05:15 [place] # (Auto) 0.6 10^3/uL (0.2-0.9) 06/21/23 05:15 Eos # (Auto) 0.0 10^3/uL (0.0-0.8) 06/21/23 05:15 Baso # (Auto) 0.0 10^3/uL (0.0-0.1) 06/21/23 05:15 Nucleated RBC % (auto) 0 % 06/21/23 05:15 Nucleated RBCs # 0.0 /100WBC 06/21/23 05:15 Sodium 133 mmol/L (136-145) L 06/21/23 05:15 Potassium 3.9 mmol/L (3.5-5.1) 06/21/23 05:15 Chloride 98 mmol/L (98-107) 06/21/23 05:15 Carbon Dioxide 23 mmol/L (22-29) 06/21/23 05:15 Anion Gap 15.9 (5-19) 06/21/23 05:15 BUN 9 mg/dL (8-23) 06/21/23 05:15 Creatinine 0.7 mg/dL (0.7-1.2) 06/21/23 05:15 GFR Calculation Not Reportable 06/21/23 05:15 Glucose 141 mg/dL (65-115) H 06/21/23 05:15 POC Glucose 251 mg/dL (70-110) H 06/20/23 20:11 Estimat Average Glucose 100 06/21/23 05:15 Hemoglobin A1c 5.1 % (4.0-6.0) 06/21/23 05:15 Calculated Osmolality 277 mOsm/kg (285-295) L 06/21/23 05:15 Lactic Acid 3.7 mmol/L (0.5-2.2) H 06/20/23 19:14 Lactic Acid (Sepsis) 3.3 mmol/L (0.5-2.2) H 06/20/23 21:51 Calcium 9.1 mg/dL (8.5-10.5) 06/21/23 05:15 Total Bilirubin 0.5 mg/dL (0.15-1.2) 06/21/23 05:15 AST 21 U/L (0-40) 06/21/23 05:15 ALT 22 U/L (0-41) 06/21/23 05:15 Alkaline Phosphatase 67 U/L (40-130) 06/21/23 05:15 Troponin T Baseline 15 ng/L (0-15) 06/20/23 19:14 Troponin T 120 Minute 25.52 ng/L (0-15) H 06/20/23 21:35 Delta Troponin T 10.52 ABS# (0-10) H* 06/20/23 21:35 Troponin T Hi Sens 6Hr 32.61 ng/L (0-15) H 06/21/23 00:54 Troponin T Hi Sens 6Hr Delta 17.61 ng/L (0-12) H* 06/21/23 00:54 NT-Pro-B Natriuret Pep 320 pg/mL (0-450) 06/21/23 05:15 Total Protein 6.2 g/dL (6.6-8.7) L 06/21/23 05:15 Albumin 3.9 g/dL (3.5-5.2) 06/21/23 05:15 Globulin 2.3 g/dL (1.3-4.6) 06/21/23 05:15 Procalcitonin 0.06 ng/mL (0-0.5) 06/20/23 19:14 TSH Cancelled 06/21/23 05:15 Urine Color Yellow (Yellow) 06/20/23 20:29 Urine Appearance Clear (CLEAR) 06/20/23 20:29 Urine pH 5 (5-7) 06/20/23 20: Ur Specific [place] 1.015 (1.005-1.030) 06/20/23 20: Urine Protein Neg (Negative) 06/20/23 20: Urine Glucose (UA) 4+ (Normal) H 06/20/23 20: Urine Ketones 1+ (Negative) H 06/20/23 20: Urine Blood 2+ (Negative) H 06/20/23 20: Urine Nitrate Negative (Negative) 06/20/23 20: Urine Bilirubin Neg (Negative) 06/20/23 20: Urine Urobilinogen Neg mg/dL (Negative) 06/20/23 20:29 Ur Leukocyte Esterase Negative (Negative) 06/20/23 20:29 Urine RBC 5-10 /hpf (0-2) H 06/20/23 20:29 Urine WBC None /hpf (0-5) 06/20/23 20:29 Ur Squamous Epith Cells None /hpf (0-5) 06/20/23 20:29 Amorphous Sediment Not Reportable 06/20/23 20:29 Urine Bacteria Trace /hpf (NONE) 06/20/23 20:29 Urine Opiates Screen Negative ng/mL (Negative) 06/20/23 20:29 Ur Barbiturates Screen Negative ng/mL (Negative) 06/20/23 20:29 Ur Phencyclidine Scrn Negative ng/mL (Negative) 06/20/23 20:29 Ur Amphetamines Screen Negative ng/mL (Negative) 06/20/23 20:29 U Benzodiazepines Scrn Negative ng/mL (Negative) 06/20/23 20:29 Urine Cocaine Screen Negative ng/mL (Negative) 06/20/23 20:29 U Marijuana (THC) Screen Negative ng/mL (Negative) 06/20/23 20:29 Vitals Last Vital Signs Temp 97.8 F 06/21/23 07:02 Pulse 107 H 06/21/23 07:02 Resp 16 06/21/23 07:02 BP 139/65 06/21/23 07:02 Pulse Ox 92 06/21/23 07:02 O2 Del Method Room Air 06/21/23 07:02 Discharge Plan Discharge Patient Disposition: Home Health Service Condition: Stable Prescriptions: New citalopram 20 mg Tablet 10 mg PO DAILY Qty: 30 0RF metoprolol tartrate 25 mg Tablet 25 mg PO BID@0900,2100 Qty: 60 0RF Continued lisinopril 40 mg tablet 40 mg PO DAILY donepezil 10 mg Tablet 5 mg PO BEDTIME simvastatin 80 mg Tablet 40 mg PO QPM Flomax 0.4 mg Capsule 0.4 mg PO QPM Vitamin D3 50 mcg (2,000 unit) Tablet 2,000 unit PO DAILY Discontinued amlodipine 10 mg tablet 10 mg PO DAILY Discharge Orders: Discharge Order (Routine); Ordered 06/21/23 Ordered By: Simba Lai Referrals: Garry Strong DO [Primary Care Provider] - 07/02/23 2:00 pm Discharge Diet: Regular Discharge Activity: Resume usual activity and Increase activity as tolerated Patient Instructions: Metoprolol (By mouth), Citalopram (By mouth), Altered Mental Status (GEN), Opioid Safety Activity Restrictions/Additional Instructions: Please consume at least 2 L of fluids daily. Do not take amlodipine. In stead 25 mg of metoprolol twice daily has been started. Continue taking lisinopril 40 mg daily. Continue taking donepezil 5 mg nightly. Celexa 10 mg daily has been added. Please check your blood pressure daily at home. Please follow-up with a primary care provider on set appointment. Discharge Attestations Time Spent in Discharge Care*: greater than 30 min Specific Discharge Activities: educating and/or supporting family/caregiver, discussing with pcp/other providers, discussing with adult protective caseworker/social workers/dc planners, documenting/other paperwork and evaluating patient/reviewing data Status at Discharge: Cognitive status at discharge: moderately impaired cognition , Behavioral status at discharge: cooperative , Functional status at discharge: independent ambulation , Overall status at discharge: patient is back to baseline Quality Metrics Clinical Quality Measures [ No reported AMI, CVA or VTE this stay] Coding Level of Care Code 30559 Total time (in minutes) for Discharge: 55 Diagnoses AMS (altered mental status) R41.82 Shortness of breath R06.02
[2023-06-21 10:53] VITALS: BP 137/64; PULSE 97; RESP 16; TEMP 36.6; O2SAT 96
[2023-06-21] MEDS: metoprolol tartrate 25 mg Tablet PO (11:05)
[2023-06-21] MEDS: citalopram 20 mg Tablet PO (11:09)
[2023-06-21 11:13] LABS: Iron 23 ug/dL (59-158); Percent Saturation 8.8 % (20-50); Thyroid Stimulating Hormone 1.18 uIU/mL (0.27-4.20); Total Iron Binding Capacity 260 mcg/dl; Unsaturated Iron Binding 237 ug/dL (112-347); Vitamin B12 649 pg/mL (232-1245)
== END 2023-06-21 11:45 | disposition home health service (06) ==
LOC: ER 21:18 → MEDSURG 06-21 07:00
PROVIDERS: Admitting Provider Internal Medicine; Emergency Provider Internal Medicine; PCP Emergency Medicine Emergency Medical Services; Visit Provider Student in an Organized Health Care Education/Training Program
DX: R41.82 Altered mental status, unspecified (principal); R06.02 Shortness of breath; I10 Essential (primary) hypertension; E78.5 Hyperlipidemia, unspecified; N40.0 Benign prostatic hyperplasia without lower urinary tract symptoms; F03.90 Unspecified dementia, unspecified severity, without behavioral disturbance, psychotic disturbance, mood disturbance, and anxiety; R00.0 Tachycardia, unspecified
CPT/HCPCS: 36415; 36416; 51701; 70450; 71045; 80053; 80306; 81001; 82607; 82962; 83036; 83540; 83550; 83605; 83880; 84145; 84443; 84484; 85025; 86403; 87040; 93005; 96365; 96372; 99285; G0378; J0696; J1650; J3490; J7030

== ENCOUNTER → 2023-08-01 07:56 | Outpatient (BNVA) | payer OTHER, SELFPAY | PROVIDERS: PCP Emergency Medicine Emergency Medical Services; Visit Provider Nurse Practitioner | DX: M19.011 Primary osteoarthritis, right shoulder (principal); M19.012 Primary osteoarthritis, left shoulder; Z71.89 Other specified counseling | CPT/HCPCS: 20610; J1100; J2795; J3301 ==

== ENCOUNTER 2023-08-15 10:34 | Outpatient (CLI) | payer OTHER, SELFPAY ==
--- NOTE | 2023-08-15 10:40 | MR_ITS ---
WS: [id number] MRI HEAD WITH CONTRAST TECHNIQUE: Sagittal T1, T2 axial, T2 axial FLAIR, axial susceptibility weighted imaging, axial diffus ion weighted images, and coronal T2 images were obtained. Pre and post-T1 axial and post T1 coronal i mages. ADC and FSPGR images. CLINICAL INFORMATION: DEMENTIA COMPARISON: MRI 08/30/2021. CT 06/20/2023 FINDINGS: No evidence of restricted diffusion to suggest acute ischemia. Ventricular system and basal cistern s are patent. Mild small vessel changes with mild to moderate parenchymal volume loss unchanged. Norm al posterior fossa. Normal vascular flow voids at the skull base. No extra-axial fluid collections. 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 Partial opacification of the mastoid air cells bilaterally. Paranasal sinuses are well aerated. Normal posterior nasopharynx. Mild prominence of the ventricular system is unchanged. No hemosiderin on susceptibly weighted images. Advanced disproportionate atrophy involving the tempor al lobes and hippocampal formations unchanged. Mild small vessel changes in the monet. No abnormal lissette olinium enhancement. Normal optic chiasm and pituitary infundibulum. Normal dural venous sinuses. No significant changes compared to previous. IMPRESSION: 1. No evidence of restricted diffusion to suggest acute ischemia. 2. Mild small vessel changes with mild to moderate parenchymal volume loss. 3. Advanced bilateral atrophy involving the temporal lobes and hippocampal formations. 4. No abnormal gadolinium enhancement. 5. Mild prominence of the ventricular system is unchanged. 6. Overall no significant changes compared to previous.
[2023-08-15] MEDS: gadobenate dimeglumine 20 mL vial IV (11:24)
== END 2023-08-15 10:35 | disposition home or self-care (01) ==
LOC: RAD 10:35
PROVIDERS: PCP Emergency Medicine Emergency Medical Services; Visit Provider Emergency Medicine Emergency Medical Services
DX: G31.89 Other specified degenerative diseases of nervous system (principal); F02.80 Dementia in other diseases classified elsewhere, unspecified severity, without behavioral disturbance, psychotic disturbance, mood disturbance, and anxiety
CPT/HCPCS: 70553; A9577

== ENCOUNTER → 2023-09-11 14:35 | Outpatient (BNVA) | payer OTHER, SELFPAY | PROVIDERS: PCP Emergency Medicine Emergency Medical Services; Referring Provider Emergency Medicine Emergency Medical Services; Visit Provider Specialist | DX: G30.9 Alzheimer's disease, unspecified (principal); F02.80 Dementia in other diseases classified elsewhere, unspecified severity, without behavioral disturbance, psychotic disturbance, mood disturbance, and anxiety | CPT/HCPCS: 99203 ==

== ENCOUNTER → 2023-10-25 10:51 | Outpatient (BNVA) | payer OTHER, SELFPAY | PROVIDERS: PCP Emergency Medicine Emergency Medical Services; Visit Provider Specialist | DX: M19.011 Primary osteoarthritis, right shoulder (principal); M19.012 Primary osteoarthritis, left shoulder; Z71.89 Other specified counseling | CPT/HCPCS: 20610; J1100; J2795; J3301 ==

== ENCOUNTER 2023-10-31 06:00 | Outpatient (CLI) | payer OTHER, SELFPAY | END 2023-10-31 23:59 | disposition home or self-care (01) | LOC: SOT 11-01 08:02 | PROVIDERS: PCP Emergency Medicine Emergency Medical Services; Visit Provider Student in an Organized Health Care Education/Training Program | DX: Z46.89 Encounter for fitting and adjustment of other specified devices (principal); S62.209 Unspecified fracture of first metacarpal bone, unspecified hand; X58.XXXD Exposure to other specified factors, subsequent encounter | CPT/HCPCS: 26740; 99213; L3982 ==

== ENCOUNTER → 2023-10-31 09:41 | Outpatient (BNVA) | payer OTHER, SELFPAY | PROVIDERS: PCP Emergency Medicine Emergency Medical Services; Referring Provider Emergency Medicine Emergency Medical Services; Visit Provider Physician Assistant | DX: S62.201A Unspecified fracture of first metacarpal bone, right hand, initial encounter for closed fracture; W19.XXXA Unspecified fall, initial encounter | CPT/HCPCS: 73130 ==

== ENCOUNTER → 2023-11-14 14:25 | Outpatient (BNVA) | payer OTHER, SELFPAY | PROVIDERS: PCP Emergency Medicine Emergency Medical Services; Visit Provider Physician Assistant | DX: S62.201A Unspecified fracture of first metacarpal bone, right hand, initial encounter for closed fracture (principal); W19.XXXA Unspecified fall, initial encounter | CPT/HCPCS: 73130; 99213 ==

== ENCOUNTER → 2024-01-07 07:49 | Outpatient (BNVA) | payer OTHER, SELFPAY | PROVIDERS: PCP Emergency Medicine Emergency Medical Services; Visit Provider Nurse Practitioner Family | DX: L72.0 Epidermal cyst (principal); L82.1 Other seborrheic keratosis; D48.5 Neoplasm of uncertain behavior of skin; D22.5 Melanocytic nevi of trunk; L81.4 Other melanin hyperpigmentation; L82.0 Inflamed seborrheic keratosis; L57.0 Actinic keratosis | CPT/HCPCS: 11102; 17000; 17110; 99203 ==

== ENCOUNTER → 2024-01-31 10:31 | Outpatient (BNVA) | payer OTHER, SELFPAY | PROVIDERS: PCP Emergency Medicine Emergency Medical Services; Visit Provider Specialist | DX: M19.011 Primary osteoarthritis, right shoulder (principal); M19.012 Primary osteoarthritis, left shoulder; Z71.89 Other specified counseling | CPT/HCPCS: 20610; J1100; J2795; J3301 ==

== ENCOUNTER → 2024-02-11 08:34 | Outpatient (BNVA) | payer OTHER, SELFPAY | PROVIDERS: PCP Emergency Medicine Emergency Medical Services; Visit Provider Dermatology | DX: C44.319 Basal cell carcinoma of skin of other parts of face (principal) | CPT/HCPCS: 13131; 17311 ==

== ENCOUNTER 2024-04-27 11:37 | Inpatient (IN) | payer OTHER, MEDICARE, SELFPAY ==
[2024-04-27] VITALS (10 sets, daily range): BP systolic 108–205; BP diastolic 84–114; PULSE 82–106; RESP 16–18; TEMP 36.4–36.7; O2SAT 92–96; BMI 23.1; BMI 23.4
--- NOTE | 2024-04-27 11:44 | ECG_ITS ---
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 Measurements Intervals [place] Rate: 79 P: 59 [place]: 156 QRS: -4 QRSD: 84 T: 57 QT: 395 QTc: 453 Interpretive Statements SINUS RHYTHM WITH occasional PACs NONSPECIFIC T-WAVE ABNORMALITY Compared to ECG 06/21/2023 00:58:36 No significant changes Electronically Signed On 04-27-2024 22:48:11 CDT by Froy Lizarraga M.D. [id number]
--- NOTE | 2024-04-27 11:47 | XR_ITS ---
WS: [id number] Exam: XR chest 1V portable [id number] Date/Time of Exam: 04/27/2024 11:50 AM Reason For Exam: chest pain Comparison 06/20/2023. The lungs are clear. Cardiomediastinal silhouette is unremarkable. Mild chronic elevation of the RIGH T diaphragm. Moderately advanced DJD of the LEFT shoulder. Remaining bony structures are intact. XR/XR chest 1V portable [id number] IMPRESSION: 1. No acute cardiopulmonary finding.
--- NOTE | 2024-04-27 11:53 | ED_ITS ---
HPI - Chest Pain 2 General: Chief Complaint: Weakness Stated Complaint: cp Time Seen by Provider: 04/27/24 11:38 History of Present Illness: 88-year-old male presents emergency room with complaints of chest x-ray shortness of breath. Patient is not having any chest pain at this time he presents emergency room via EMS. Denies abdominal pain. He has been urinating but only in small amounts. No fever sweats or chills denies hematuria no hematochezia melena or hematemesis. On arrival his blood pressure is elevated not taking any of his blood pressure medications today Associated symptoms: Deny abdominal pain, dyspnea or fever(s) Related Data Home Medications Medication Instructions Recorded Confirmed lisinopril 40 mg tablet 40 mg PO DAILY 03/24/20 04/27/24 cholecalciferol (vitamin D3) 50 2,000 unit PO DAILY 06/21/23 04/27/24 mcg (2,000 unit) tablet (Vitamin D3) simvastatin 80 mg tablet 40 mg PO QPM 06/21/23 04/27/24 Previous Rx's Medication Instructions Recorded metoprolol tartrate 25 mg tablet 25 mg PO BID@0900,2100 #60 tabs 06/21/23 Allergies Allergy/AdvReac Type Severity Reaction Status Date / Time No Known Allergies Allergy Verified 04/27/24 11:55 Review of Systems 2 Const: Denies: fever(s) or chills Card: Reports: chest pain and dyspnea on exertion Resp: Denies: dyspnea GI: Denies: abdominal pain : Denies: dysuria, urinary frequency or urinary urgency Musc: Denies: neck pain or back pain Skin/Breast: Denies: rash PFSH ED 2 PFSH: Medical History (Updated 04/27/24 @ 18:24 by Ervin Katz DO) BPH (benign prostatic hyperplasia) Fracture of metacarpal, first, right hand Rotator cuff arthropathy of both shoulders Alzheimer's dementia without behavioral disturbance Primary osteoarthritis of shoulders, bilateral Hypertension Social History Smoking and tobacco/nicotine status: never used tobacco/nicotine Alcohol intake: never Substance/Drug Use: never Physical Exam 2 Const: COMMON NORMALS: no acute distress GENERAL APPEARANCE: cooperative and comfortable ORIENTATION/CONSCIOUSNESS: Yes awake, Yes oriented to person, Yes oriented to place and Yes oriented to time HENMT: COMMON NORMALS: normocephalic, atraumatic and hearing grossly normal bilaterally HEAD & SCALP: normocephalic and atraumatic Resp: COMMON NORMALS: normal respiratory effort, No retractions, No use of accessory muscles and clear to auscultation bilaterally AUSCULTATION: clear to auscultation bilaterally Cardio: COMMON NORMALS: regular rate, regular rhythm and No murmurs present (Cardio) RATE: regular rate RHYTHM: regular rhythm GI: COMMON NORMALS: Soft to palpation and No hepatosplenomegaly present A USCULTATION: Yes normoactive bowel sounds PALPATION: Yes Soft to palpation, No Tenderness to palpation present (GI), No Guarding due to palpation present (GI) and Yes No hepatosplenomegaly present Extremity: COMMON NORMALS: normal to inspection, capillary refill normal, no clubbing, cyanosis or edema, no calf tenderness and no pedal edema Neuro: SENSORIUM/ORIENTATION: Yes oriented to person, Yes oriented to place and Yes oriented to time Skin: COMMON NORMALS: no rashes or lesions noted GENERAL SKIN EXAM: no rashes or lesions noted Course 2 Vital Signs: Vital signs: Vital Signs Temperature 98.0 F 04/27/24 11:46 Pulse Rate 87 04/27/24 16:59 Respiratory Rate 16 04/27/24 16:59 Blood Pressure 183/87 04/27/24 16:59 Pulse Oximetry 92 04/27/24 16:59 Oxygen Delivery Me thod Room Air 04/27/24 16:59 MDM - Chest Pain Medical Decision Making Patient has acute kidney injury with hypokalemia. He is given oral potassium supplement bladder scan shows marked bladder distention. [place] placed intermittently has been clamped so far he has drained more than 2700 mL. Will admit for hypokalemia acute kidney injury. CT did not show any obstruction or abscess does show significant hydronephrosis with some extravasation of urine at the urinary pelvis. No signs of infection on his UA did show some blood suspect this is from the catheter placement. Discussed with Dr. Lai will admit orders written Medical Records I reviewed the patient's medical records. Lab Data I reviewed the patient's lab results. 04/27/24 11:58 04/27/24 16:39 Radiology Impressions Chest X-Ray 04/27/24 11:47 IMPRESSION: 1. No acute cardiopulmonary finding. Abdomen/Pelvis CT 04/27/24 17:00 IMPRESSION: 1. Marked urinary bladder wall thickening 2. Severe bilateral hydronephrosis 3. Right perinephric stranding and retroperitoneal fluid which could be due to extravasated urine from the urinary tract obstruction. 4. Left inguinal hernia containing a portion of the sigmoid colon without obstruction 5. Hepatic cysts 6. Other non urgent findings as described above COMMENTS: Consistent with the [place] [employer]'s Incidental Findings Committee white paper (J Am Alex Radiol 2018): Any incidental renal lesion less than 1 cm or classified as too small to characterize, or any incidental cystic renal lesion characterized as simple-appearing, is likely benign. No follow-up imaging is recommended for these lesions per consensus recommendations based on imaging criteria. Laboratory Results WBC 9.93 10^3/uL (3.29-11.43) 04/27/24 11:58 RBC 4.50 10^6/uL (3.85-5.65) 04/27/24 11:58 Hgb 13.50 g/dL (11.27-16.99) 04/27/24 11:58 Hct 41.1 % (37-53) 04/27/24 11:58 MCV 91.3 fl (82-101) 04/27/24 11:58 MCH 30.0 pg (27-33) 04/27/24 11:58 MCHC 32.8 g/dL (30-55) 04/27/24 11:58 RDW 13.3 % (12.1-15.1) 04/27/24 11:58 Plt Count 516 10^3/cmm (157-399) H 04/27/24 11:58 MPV 9.7 fL (7.4-10.4) 04/27/24 11:58 Neut % (Auto) 76.5 % 04/27/24 11:58 Lymph % (Auto) 12.2 % 04/27/24 11:58 [place] % (Auto) 8.4 % 04/27/24 11:58 Eos % (Auto) 1.7 % 04/27/24 11:58 Baso % (Auto) 0.5 % 04/27/24 11:58 Neut # (Auto) 7.60 10^3/uL (1.8-7.7) 04/27/24 11:58 Lymph # (Auto) 1.2 10^3/uL (0.8-4.8) 04/27/24 11:58 [place] # (Auto) 0.8 10^3/uL (0.2-0.9) 04/27/24 11:58 Eos # (Auto) 0.2 10^3/uL (0.0-0.8) 04/27/24 11:58 Baso # (Auto) 0.1 10^3/uL (0.0-0.1) 04/27/24 11:58 Nucleated RBC % (auto) 0 % 04/27/24 11:58 Nucleated RBCs # 0.0 /100WBC 04/27/24 11:58 Sodium 141 mmol/L (136-145) 04/27/24 11:58 Potassium 3.3 mmol/L (3.5-5.1) L 04/27/24 16:39 Chloride 101 mmol/L (98-107) 04/27/24 11:58 Carbon Dioxide 22 mmol/L (22-29) 04/27/24 11:58 Anion Gap 20.7 (5-19) H 04/27/24 11:58 BUN 21 mg/dL (8-23) 04/27/24 11:58 Creatinine 2.7 mg/dL (0.7-1.2) H 04/27/24 11:58 GFR Calculation Not Reportable 04/27/24 11:58 Glucose 97 mg/dL (65-115) 04/27/24 11:58 Calculated Osmolality 295 mOsm/kg (285-295) 04/27/24 11:58 Calcium 7.9 mg/dL (8.5-10.5) L 04/27/24 11:58 Magnesium 2.0 mg/dL (1.7-2.3) 04/27/24 11:58 Total Bilirubin 1.5 mg/dL (0.15-1.2) H 04/27/24 11:58 AST 20 U/L (0-40) 04/27/24 11:58 ALT 13 U/L (0-41) 04/27/24 11:58 Alkaline Phosphatase 78 U/L (40-130) 04/27/24 11:58 Troponin T Baseline 41 ng/L (0-15) H 04/27/24 11:58 Troponin T 120 Minute 36.22 ng/L (0-15) H 04/27/24 13:30 Delta Troponin T -4.78 ABS# (0-10) L 04/27/24 13:30 Troponin T Hi Sens 6Hr 46.46 ng/L (0-15) H 04/27/24 17:33 Troponin T Hi Sens 6Hr Delta 5.46 ng/L (0-12) 04/27/24 17:33 Total Protein 6.0 g/dL (6.6-8.7) L 04/27/24 11:58 Albumin 3.6 g/dL (3.5-5.2) 04/27/24 11:58 Globulin 2.4 g/dL (1.3-4.6) 04/27/24 11:58 Procalcitonin 0.07 ng/mL (0-0.5) 04/27/24 16:39 All radiology interpretation(s) finalized by discharge Discharge Plan Discharge Patient Disposition: Admitted As Inpatient Admit Provider: Simba Lai Clinical Impression: Acute urinary retention, Acute kidney injury, Alzheimer's dementia without behavioral disturbance, Hypokalemia, BPH (benign prostatic hyperplasia) Condition: Stable Coding Level of Care Code ED Travel Director for Malaika Palma
[2024-04-27 12:03] LABS: Basophils # 0.1 10^3/uL (0.0-0.1); Basophils % 0.5 %; Eosinophils # 0.2 10^3/uL (0.0-0.8); Eosinophils % 1.7 %; Hematocrit 41.1 % (37-53); Lymphocytes # 1.2 10^3/uL (0.8-4.8); Lymphocytes % 12.2 %; Mean Corpuscular HGB Conc 32.8 g/dL (30-55); Mean Corpuscular Volume 91.3 fl (82-101); Mean Platelet Volume 9.7 fL (7.4-10.4); Monocytes # 0.8 10^3/uL (0.2-0.9); Monocytes % 8.4 %; Neutrophils % 76.5 %; Nucleated Red Blood Cells % 0 %; Platelet Count 516 10^3/cmm (157-399); Red Cell Distribution Width 13.3 % (12.1-15.1); White Blood Count 9.93 10^3/uL (3.29-11.43)
[2024-04-27 12:20] LABS: Alanine Aminotransferase 13 U/L (0-41); Albumin Level 3.6 g/dL (3.5-5.2); Alkaline Phosphatase 78 U/L (40-130); Anion Gap 20.7 (5-19); Aspartate Amino Transferase 20 U/L (0-40); Blood Urea Nitrogen 21 mg/dL (8-23); Calcium 7.9 mg/dL (8.5-10.5); Carbon Dioxide 22 mmol/L (22-29); Chloride 101 mmol/L (98-107); Creatinine Clr Calc Pharmacy 19.3313; Globulin 2.4 g/dL (1.3-4.6); Glucose 97 mg/dL (65-115); Osmolality Calculated 295 mOsm/kg (285-295); Sodium 141 mmol/L (136-145); Total Bilirubin 1.5 mg/dL (0.15-1.2)
[2024-04-27 12:21] LABS: Potassium 2.7 mmol/L (3.5-5.1)
[2024-04-27 12:22] LABS: Troponin(5th) Baseline 41 ng/L (0-15)
[2024-04-27] MEDS: sodium chloride 0.9% 1,000 ML 999 ML IV ×2 (12:36→16:38)
[2024-04-27] MEDS: potassium chloride oral liq 20 mEq/15 mL UDC 40 MEQ PO (12:36)
[2024-04-27] MEDS: aspirin 81 mg Chew Tablet 324 MG PO (12:36)
--- NOTE | 2024-04-27 13:04 | PC.PHAR ---
[facility]-verified with pt and family member
--- NOTE | 2024-04-27 13:48 | ECG_ITS ---
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 Measurements Intervals [place] Rate: 98 P: 61 [place]: 152 QRS: 11 QRSD: 82 T: 61 QT: 376 QTc: 480 Interpretive Statements SINUS RHYTHM Compared to ECG 04/27/2024 11:44:01 Sinus arrhythmia no longer present T-wave abnormality no longer present Electronically Signed On 04-27-2024 22:57:26 CDT by Froy Lizarraga M.D. [id number]
[2024-04-27] MEDS: lisinopril 20 mg Tablet 40 MG PO (13:50)
[2024-04-27] MEDS: hyDRALAzine 20 mg/mL INJ 1 mL 10 MG IVP ×2 (13:50→19:51)
[2024-04-27] MEDS: metoprolol tartrate 25 mg Tablet PO (13:51)
[2024-04-27 13:56] LABS: Troponin 5 2HR 36.22 ng/L (0-15)
[2024-04-27 13:59] LABS: Troponin 5 2HR Delta -4.78 ABS# (0-10)
[2024-04-27] MEDS: morphine 4 mg/mL SDV 1 mL 2 MG IVP (16:37)
--- NOTE | 2024-04-27 16:55 | P.HP_ITS ---
Providers/Chief Complaint 2 Primary Care Provider: Garry Strong DO Chief Complaint: cp History of Present Illness Garry Duval Jr is a 88 year old male with past medical history of hypertension, dementia, BPH was sent in today to the ER from the primary care's office because of elevated blood pressure. Patient had gone to see his primary care office because of not feeling well, right flank pain going on for last 3 days. At primary care's office blood pressures of more than 180 so was sent into the ER with concerns for possible EKG changes. In the ER patient was found to have a chronic right bundle branch block with blood pressures of more than 180 for which she was given his home dose of medications and he was found to have acute kidney injury with urinary retention. Follow-up catheter was placed and 800 cc of urine was evacuated. Examination patient is laying comfortably in bed, awake, alert to self with blood pressure of 180/90. Overall up to 15 cc of urine has been drained. He has received 20 of IV hydralazine, home dose of metoprolol and lisinopril. As well as son was at bedside his medications for dementia including donepezil and Celexa were discontinued because they were making him more confused and agitated. Review of Systems 2 General: Reports: ROS unobtainable due to mental status Medications/Allergies Home Medications Medication Instructions Recorded Confirmed Last Taken Type lisinopril 40 mg tablet 40 mg PO DAILY 03/24/20 04/27/24 04/26/24 History cholecalciferol (vitamin D3) 50 2,000 unit PO DAILY 06/21/23 04/27/24 04/26/24 History mcg (2,000 unit) tablet (Vitamin D3) metoprolol tartrate 25 mg tablet 25 mg PO BID@0900,2100 #60 tabs 06/21/23 04/27/24 04/26/24 Rx simvastatin 80 mg tablet 40 mg PO QPM 06/21/23 04/27/24 04/26/24 History Allergies Allergy/AdvReac Type Severity Reaction Status Date / Time No Known Allergies Allergy Verified 04/27/24 11:55 PFSH Acute 2 PFSH: Medical History (Updated 04/27/24 @ 16:56 by Simba Lai MD) BPH (benign prostatic hyperplasia) Fracture of metacarpal, first, right hand Rotator cuff arthropathy of both shoulders Alzheimer's dementia without behavioral disturbance Primary osteoarthritis of shoulders, bilateral Hypertension Social History Smoking and tobacco/nicotine status: never used tobacco/nicotine Alcohol intake: never Substance/Drug Use: never Vitals/I&O/Wt Last Vital Signs Temp 98.0 F 04/27/24 11:46 Pulse 96 04/27/24 14:52 Resp 16 04/27/24 14:52 BP 108/107 04/27/24 14:52 Pulse Ox 94 04/27/24 14:52 O2 Del Method Room Air 04/27/24 14:52 Weight last 48 hrs Weight 71.214 kg Physical Exam 2 Narrative: General: No acute distress, AO x3 HEENT: PERRLA, pupils bilaterally equal and reactive Chest: Normal vesicular breath sounds, no added sounds, equal good air entry bilaterally CVS: S1-S2 regular, no murmurs, no tachycardia, no gallops, no rubs Abdomen: Soft, nontender, no organomegaly, bowel sounds present Neuro: No focal deficits, no facial deformity, AO x3, power 5/5 in all limbs Data 04/27/24 11:58 04/27/24 16:39 A&P Assessment and plan (1) Acute urinary retention: Urinary retention of up to 800 cc while in the ER. Associated with acute kidney injury Alcaraz placed. CT abdomen pelvis to rule out obstructive nephropathy and hydronephrosis. Check urinalysis. Start on Flomax 0.4 mg oral daily. Will need to follow-up as an outpatient with urologist. Most likely will be discharged with Alcaraz in place. (2) Acute kidney injury: In setting of bladder outlet obstruction. Alcaraz placed. Baseline creatinine less than 1. Medical reconciliation done for nephrotoxic drugs. Hold off on lisinopril. Monitor BMP daily. Normal saline at 75 cc/h. (3) Hypokalemia: Replace 40 mg in the ER. Recheck. Replace with target around 4. (4) Alzheimer's dementia without behavioral disturbance: (5) BPH (benign prostatic hyperplasia): Plan Hypertension: Goal blood pressure less than 140/90 mmHg. Elevated on admission. Most likely in setting of urinary retention. Continue with home dose of metoprolol. Holding off on lisinopril given BELKIS. Depending on the blood pressures we will plan to change metoprolol to carvedilol or add hydralazine. History of Alzheimer. CODE STATUS: Son Mr. Balta Duval will be the DPOA. DNR/DNI. Cardiac regular diet Protonix for PUD prophylaxis Heparin 5000 every 12 hourly for DVT prophylaxis Attestations 2 Medical Necessity Statement*: Admission for than 2 midnights for management of acute kidney injury in setting of urinary obstruction, dehydration along with hypokalemia Diagnoses Acute urinary retention R33.8 Acute kidney injury N17.9 Hypokalemia E87.6 Alzheimer's dementia without behavioral disturbance G30.9; F02.80 BPH (benign prostatic hyperplasia) N40.0
--- NOTE | 2024-04-27 17:00 | CTR_ITS ---
PROCEDURE INFORMATION: Exam: CT Abdomen And Pelvis Without Contrast Exam date and time: 04/27/2024 5:12 PM Age: 88 years old Clinical indication: Other: Joselo; Additional info: Joselo, obstructive nephropathy TECHNIQUE: Imaging protocol: Computed tomography of the abdomen and pelvis without contrast. Radiation optimization: All CT scans at this facility use at least one of these dose optimization techniques: automated exposure control; mA and/or kV adjustment per patient size (includes targeted exams where dose is matched to clinical indication); or iterative reconstruction. COMPARISON: CT abdomen pelvis w con* [id number] 05/01/2023 8:39 AM RADIATION DOSE METRICS: Total DLP (mGy-cm): 559 FINDINGS: Limitations: Study is somewhat limited by patient respiratory motion. Study is moderately limited by patient motion. Lungs: There is some partial atelectasis at the lung bases. Heart: There is trace pericardial effusion. Coronary arteries: There is severe atherosclerotic calcification of the coronary arteries. Liver: There are multiple hypodense lesions within the liver most likely benign simple cyst but not fully characterized on this examination. These are unchanged compared with the previous study of 05/01/2023. The spleen is normal. Gallbladder and biliary ducts: Normal. No calcified stones. No ductal dilation. Pancreas: The pancreas is normal. Spleen: See Liver finding. Adrenal glands: The adrenal glands are normal. Kidneys and ureters: There are multiple simple renal cysts. Largest renal cyst is in the lower pole right kidney measuring 8 x 10 cm and not significantly changed. There is marked hydronephrosis of both kidneys. There is perinephric stranding right greater than left new compared with the previous exam. There is bilateral hydroureter Stomach and bowel: There is no evidence of intestinal obstruction. There is no evidence of colitis/diverticulitis. Appendix: Not identified Intraperitoneal space: There is no evidence of free intraperitoneal fluid. Retroperitoneal space: There is retroperitoneal fluid along the right psoas muscle and paracolic gutter and right side of the pelvis. This is nonspecific but could represent leaking or extravasated urine related to the patient's hydronephrosis and urinary tract obstruction. Vasculature: The aorta demonstrates moderate atherosclerotic calcification. There is no evidence of an abdominal aortic aneurysm. Lymph nodes: There is no evidence of lymphadenopathy. Urinary bladder: There is marked thickening of the urinary bladder wall. Urinary bladder is drained by Lacaraz catheter. The urinary bladder wall thickening is nonspecific and could be due to muscular hypertrophy, urinary tract infection or other urinary bladder pathology. Please correlate with urinalysis and other laboratory findings. Urinary bladder is not optimally evaluated on this examination due to patient motion artifact. Reproductive: Unremarkable as visualized. Bones/joints: There is moderate lumbar scoliosis concave to the right. There is no evidence of acute fracture. Soft tissues: There is left inguinal hernia containing a portion of the sigmoid colon without evidence of incarceration or obstruction. CT/CT abdomen pelvis wo con [id number] IMPRESSION: 1. Marked urinary bladder wall thickening 2. Severe bilateral hydronephrosis 3. Right perinephric stranding and retroperitoneal fluid which could be due to extravasated urine from the urinary tract obstruction. 4. Left inguinal hernia containing a portion of the sigmoid colon without obstruction 5. Hepatic cysts 6. Other non urgent findings as described above COMMENTS: Consistent with the [employer]'s Incidental Findings Committee white paper (J Am Alex Radiol 2018): Any incidental renal lesion less than 1 cm or classified as too small to characterize, or any incidental cystic renal lesion characterized as simple-appearing, is likely benign. No follow-up imaging is recommended for these lesions per consensus recommendations based on imaging criteria.
[2024-04-27 17:05] LABS: Potassium 3.3 mmol/L (3.5-5.1)
[2024-04-27 17:48] LABS: Procalcitonin 0.07 ng/mL (0-0.5)
[2024-04-27 17:55] LABS: Troponin 5 6HR 46.46 ng/L (0-15); Troponin 5 6HR Delta 5.46 ng/L (0-12)
--- NOTE | 2024-04-27 18:09 | ECG_ITS ---
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 Measurements Intervals [place] Rate: 82 P: 68 CO: 149 QRS: 3 QRSD: 88 T: 59 QT: 399 QTc: 468 Interpretive Statements SINUS RHYTHM WITH OCCASIONAL SUPRAVENTRICULAR PREMATURE COMPLEXES POSSIBLE RIGHT VENTRICULAR CONDUCTION DELAY [RSR (QR) IN V1/V2] NONSPECIFIC T-WAVE ABNORMALITY Compared to ECG 04/27/2024 13:48:45 T-wave abnormality now present Electronically Signed On 04-28-2024 8:28:37 CDT by Frank Richardson M.D. [id number]
[2024-04-27 18:14] LABS: Charge for UA Resulting for Rev
[2024-04-27 18:29] LABS: Bilirubin Urine Negative (Negative); Blood Urine 3+ (Negative); Glucose Urine UA Negative (Normal); Ketones Urine Trace (Negative); Leukocyte Esterase Urine Negative (Negative); Nitrate Urine Negative (Negative); Protein Urine 1+ (Negative); Specific Gravity, Urine 1.005 (1.005-1.030); Urine Appearance Clear (CLEAR)
[2024-04-27 18:34] LABS: Bacteria Urine None Seen /hpf; Hyaline Casts Urine 1.21 /lpf; RBC Urine >100 /hpf (0-2); Squamous Epithelial Cell Urine 0-5 /hpf (0-5); WBC Urine 0-5 /hpf (0-5)
--- NOTE | 2024-04-27 18:39 | PC.NURSE ---
Patients son came to doorway and stated down the barba he ripped his IV out. Nurse stated she would be in momentarily. When approahing the room, pttamiko's son was overheard raising his voice and cussing, God damn it now you will have to stay here for two days I bet. I'm gonna have to put you in a fucking alf. Doctor Sterling notified of this.
[2024-04-27 18:40] LABS: Urine Color Red (Yellow)
[2024-04-27 18:41] LABS: Add Urine Culture? Yes
[2024-04-27 20:51] LABS: Thyroid Stimulating Hormone 2.77 uIU/mL (0.27-4.20)
[2024-04-27] MEDS: heparin 5,000 unit/mL INJ 1 mL 5000 UNIT SUBCUT (21:11)
[2024-04-27] MEDS: sodium chloride 0.9% 1,000 ML 75 ML IV (21:11)
[2024-04-27] MEDS: carvedilol 12.5 mg Tablet PO (21:11)
[2024-04-27] MEDS: hyDRALAzine 25 mg Tablet PO (21:11)
[2024-04-28 03:39] VITALS: BP 151/79; PULSE 99; RESP 16; TEMP 36.7; O2SAT 97
[2024-04-28 04:58] LABS: Basophils % 0.3 %; Eosinophils # 0.1 10^3/uL (0.0-0.8); Eosinophils % 0.6 %; Hematocrit 37.6 % (37-53); Lymphocytes % 8.1 %; Mean Corpuscular HGB Conc 33.5 g/dL (30-55); Mean Corpuscular Volume 89.5 fl (82-101); Mean Platelet Volume 9.5 fL (7.4-10.4); Monocytes # 1.1 10^3/uL (0.2-0.9); Monocytes % 8.5 %; Neutrophils # 10.29 10^3/uL (1.8-7.7); Nucleated Red Blood Cells % 0 %; Platelet Count 499 10^3/cmm (157-399); Red Cell Distribution Width 13.3 % (12.1-15.1); White Blood Count 12.54 10^3/uL (3.29-11.43)
[2024-04-28 05:30] LABS: Alanine Aminotransferase 14 U/L (0-41); Albumin Level 3.2 g/dL (3.5-5.2); Alkaline Phosphatase 70 U/L (40-130); Anion Gap 16.8 (5-19); Aspartate Amino Transferase 24 U/L (0-40); Blood Urea Nitrogen 14 mg/dL (8-23); Calcium 7.8 mg/dL (8.5-10.5); Carbon Dioxide 24 mmol/L (22-29); Chloride 106 mmol/L (98-107); Globulin 2.7 g/dL (1.3-4.6); Glucose 104 mg/dL (65-115); Magnesium 1.6 mg/dL (1.7-2.3); Osmolality Calculated 299 mOsm/kg (285-295); Phosphorus 3.3 mg/dL (2.5-4.5); Sodium 144 mmol/L (136-145); Total Bilirubin 1.4 mg/dL (0.15-1.2); Total Protein 5.9 g/dL (6.6-8.7)
[2024-04-28 05:53] LABS: Potassium 2.8 mmol/L (3.5-5.1)
[2024-04-28] MEDS: potassium chloride oral liq 20 mEq/15 mL UDC 40 MEQ PO (06:20)
[2024-04-28 07:16] VITALS: BP 157/79; PULSE 89; RESP 18; TEMP 36.7; O2SAT 94
[2024-04-28] MEDS: carvedilol 12.5 mg Tablet PO ×2 (08:27→17:12)
[2024-04-28] MEDS: pantoprazole DR 40 mg Tablet PO (08:27)
[2024-04-28] MEDS: hyDRALAzine 25 mg Tablet PO ×3 (08:27→20:16)
[2024-04-28] MEDS: tamsulosin 0.4 mg Capsule PO (08:27)
[2024-04-28] MEDS: magnesium sulfate premix 2 GM/50 ML PIGGYBACK IV (09:17)
[2024-04-28] MEDS: potassium chloride ER 20 mEq Tablet 80 MEQ PO (09:18)
[2024-04-28] MEDS: amlodipine 5 mg Tablet PO (09:18)
[2024-04-28] MEDS: sodium chloride 0.9% 1,000 ML 75 ML IV (09:20)
--- NOTE | 2024-04-28 10:55 | P.PN_ITS ---
Subjective 2 Subjective: Overnight patient did have mild confusion. Today morning seen with son at bedside. Patient is awake and alert at his baseline. Denies any nausea vomiting, headache. Having mild hematuria. Vitals/I&O/Wt Last Vital Signs Temp 98.1 F 04/28/24 07:16 Pulse 89 04/28/24 07:16 Resp 18 04/28/24 07:16 BP 157/79 04/28/24 07:16 Pulse Ox 94 04/28/24 07:16 O2 Del Method Room Air 04/28/24 07:16 04/27/24 04/28/24 04/28/24 22:59 06:59 14:59 Intake Total 2240 / 2240 240 / 2480 1321.25 / 1321.25 Output Total 1500 / 1500 2225 / 3725 Balance 740 / 740 -1985 / -1245 1321.25 / 1321.25 Weight last 48 hrs Weight 73.879 kg Weight 72.121 kg Weight 71.214 kg Physical Exam 2 Narrative: General: No acute distress, AO x 1-2, baseline HEENT: PERRLA, pupils bilaterally equal and reactive Chest: Normal vesicular breath sounds, no added sounds, equal good air entry bilaterally CVS: S1-S2 regular, no murmurs, no tachycardia, no gallops, no rubs Abdomen: Soft, nontender, no organomegaly, bowel sounds present Neuro: No focal deficits, no facial deformity, AO x3, power 5/5 in all limbs Urinary Catheter Management: Alcaraz: Cath Placed During This Visit: yes Reason for Continuing Indwelling Catheter: Acute Urinary Retention or Obstruction Urinary Catheter Date of Insertion: 04/27/24 Data 04/28/24 04:43 04/28/24 04:43 A&P Assessment and plan (1) Acute urinary retention: Insetting of bladder outlet obstruction. Alcaraz placed. CT of abdomen and pelvis howing severe bilateral hydronephrosis. Appreciate urinalysis. For now continue with Alcaraz. Most likely will be discharged on Alcaraz catheter for next few weeks with a follow-up with urology and outpatient abdominal imaging for further evaluation of resolution of hydronephrosis. Continue with Flomax 0.4 mg. Will change to twice daily. (2) Acute kidney injury: In setting of bladder outlet obstruction. Alcaraz placed. Baseline creatinine less than 1. Resolving. Down to 1.3. Medical reconciliation done for nephrotoxic drugs. Hold off on lisinopril. Monitor BMP daily. Normal saline at 75 cc/h. (3) Hypokalemia: Along with hypomagnesemia. Replace 80 mg of oral potassium along with 2 g of IV magnesium. Repeat potassium level in evening. (4) Alzheimer's dementia without behavioral disturbance: (5) BPH (benign prostatic hyperplasia): (6) Hydronephrosis due to obstruction of bladder: (7) Hematuria: Most likely in setting of pulled Alcaraz catheter. Continue to monitor. Bladder scan as needed with flushing of Alcaraz catheter. Plan Hypertension: Goal blood pressure less than 140/90 mmHg. Elevated on admission. Continue with carvedilol 12.5 mg twice daily. Add amlodipine 10 mg oral daily. If needed will add hydralazine. IV hydralazine 10 mg every 4 hours as needed for systolic blood pressure more than 160 mmHg. History of Alzheimer. CODE STATUS: Son Mr. Balta Duval will be the DPOA. DNR/DNI. Cardiac regular diet Protonix for PUD prophylaxis Heparin 5000 every 12 hourly for DVT prophylaxis Attestations 2 Medical Necessity Statement*: Requested hospitalization for management of BELKIS along with bilateral hydronephrosis in setting of bladder outlet obstruction, uncontrolled hypertension, hematuria along with significant hypokalemia Diagnoses Acute urinary retention R33.8 Acute kidney injury N17.9 Hypokalemia E87.6 Alzheimer's dementia without behavioral disturbance G30.9; F02.80 BPH (benign prostatic hyperplasia) N40.0 Hydronephrosis due to obstruction of bladder N13.30; N32.0 Hematuria R31.9
[2024-04-28 11:14] VITALS: BP 140/72; PULSE 78; RESP 18; TEMP 36.8; O2SAT 93
[2024-04-28 15:48] VITALS: BP 159/79; PULSE 92; RESP 18; TEMP 36.7; O2SAT 91
[2024-04-28 16:33] LABS: Potassium 3.4 mmol/L (3.5-5.1)
[2024-04-28] MEDS: atorvastatin 40 mg Tablet 20 MG PO (17:12)
[2024-04-28 20:00] VITALS: BP 132/76; PULSE 84; RESP 17; TEMP 37; O2SAT 94
[2024-04-29] VITALS: BP 126/62; PULSE 83; RESP 19; TEMP 36.9; O2SAT 95
[2024-04-29 04:00] VITALS: BP 150/48; PULSE 97; RESP 18; TEMP 36.4; O2SAT 93
[2024-04-29 05:37] LABS: Basophils % 0.2 %; Eosinophils # 0.3 10^3/uL (0.0-0.8); Eosinophils % 2.6 %; Hematocrit 35.6 % (37-53); Lymphocytes # 1.2 10^3/uL (0.8-4.8); Lymphocytes % 9.5 %; Mean Corpuscular HGB Conc 33.1 g/dL (30-55); Mean Corpuscular Hemoglobin 29.6 pg (27-33); Mean Corpuscular Volume 89.2 fl (82-101); Mean Platelet Volume 9.8 fL (7.4-10.4); Monocytes % 8.2 %; Neutrophils # 9.85 10^3/uL (1.8-7.7); Neutrophils % 78.9 %; Nucleated Red Blood Cells % 0 %; Platelet Count 475 10^3/cmm (157-399); Red Blood Count 3.99 10^6/uL (3.85-5.65); Red Cell Distribution Width 13.4 % (12.1-15.1); White Blood Count 12.51 10^3/uL (3.29-11.43)
[2024-04-29 06:03] LABS: Alanine Aminotransferase 13 U/L (0-41); Alkaline Phosphatase 66 U/L (40-130); Anion Gap 13.8 (5-19); Aspartate Amino Transferase 27 U/L (0-40); Blood Urea Nitrogen 10 mg/dL (8-23); Calcium 7.4 mg/dL (8.5-10.5); Carbon Dioxide 24 mmol/L (22-29); Chloride 105 mmol/L (98-107); Creatinine Clr Calc Pharmacy 56.8343; Globulin 2.5 g/dL (1.3-4.6); Glucose 110 mg/dL (65-115); Osmolality Calculated 290 mOsm/kg (285-295); Sodium 140 mmol/L (136-145); Total Bilirubin 1.2 mg/dL (0.15-1.2); Total Protein 5.5 g/dL (6.6-8.7)
[2024-04-29 06:18] LABS: Potassium 2.8 mmol/L (3.5-5.1)
[2024-04-29] MEDS: potassium chloride ER 20 mEq Tablet 40 MEQ PO ×2 (06:37→11:44)
[2024-04-29] MEDS: sodium chloride 0.9% 1,000 ML 75 ML IV ×2 (06:38→21:03)
[2024-04-29 07:47] VITALS: BP 151/69; PULSE 85; RESP 17; TEMP 36.7; O2SAT 96
[2024-04-29] MEDS: amlodipine 5 mg Tablet 10 MG PO (08:35)
[2024-04-29] MEDS: carvedilol 12.5 mg Tablet PO ×2 (08:35→16:50)
[2024-04-29] MEDS: tamsulosin 0.4 mg Capsule PO ×2 (08:35→16:50)
[2024-04-29] MEDS: hyDRALAzine 25 mg Tablet PO ×3 (08:35→21:03)
[2024-04-29] MEDS: pantoprazole DR 40 mg Tablet PO (08:35)
[2024-04-29 11:41] VITALS: BP 154/79; PULSE 86; RESP 17; TEMP 36.8; O2SAT 95
--- NOTE | 2024-04-29 12:25 | P.PN_ITS ---
Subjective 2 Subjective: seen this am clear yellow urine draining in dunbar bag pt ao to self only son at bedside son states he cant take take care of pt at home and is requesting SNF Vitals/I&O/Wt Last Vital Signs Temp 98.2 F 04/29/24 11:41 Pulse 86 04/29/24 11:41 Resp 17 04/29/24 11:41 BP 154/79 04/29/24 11:41 Pulse Ox 95 04/29/24 11:41 O2 Del Method Room Air 04/29/24 11:41 04/28/24 04/29/24 04/29/24 22:59 06:59 14:59 Intake Total 1163.75 / 2965.00 0 / 2965.00 480 / 480 Output Total 850 / 1500 1450 / 2950 Balance 313.75 / 1465.00 -1450 / 15.00 480 / 480 Weight last 48 hrs Weight 67.67 kg Weight 73.879 kg Weight 72.121 kg Physical Exam 2 Narrative: General: No acute distress, AO x 1-2, baseline HEENT: PERRLA, pupils bilaterally equal and reactive Chest: Normal vesicular breath sounds, no added sounds, equal good air entry bilaterally CVS: S1-S2 regular, no murmurs, no tachycardia, no gallops, no rubs Abdomen: Soft, nontender, no organomegaly, bowel sounds present Neuro: No focal deficits, no facial deformity, AO x3, power 5/5 in all limbs Urinary Catheter Management: Dunbar: Cath Placed During This Visit: yes Reason for Continuing Indwelling Catheter: Acute Urinary Retention or Obstruction Urinary Catheter Date of Insertion: 04/27/24 Data 04/29/24 04:56 04/29/24 04:56 Micro: Microbiology 04/27/24 18:00 Urine Culture - Preliminary Urine,Clean Catch A&P Assessment and plan (1) Acute urinary retention: Insetting of bladder outlet obstruction. Dunbar placed. CT of abdomen and pelvis showing severe bilateral hydronephrosis. Appreciate urinalysis. For now continue with Dunbar. Most likely will be discharged on Dunbar catheter for next few weeks with a follow-up with urology and outpatient abdominal imaging for further evaluation of resolution of hydronephrosis. Continue with Flomax 0.4 mg BID (2) Acute kidney injury: In setting of bladder outlet obstruction. Dunbar placed. Baseline creatinine less than 1. Resolving. Down to 1.3. Medical reconciliation done for nephrotoxic drugs. Hold off on lisinopril. Monitor BMP daily. Normal saline at 75 cc/h. DC fluids today BELKIS resolved (3) Hypokalemia: Along with hypomagnesemia. 40 BID K PO ordered today recheck BMP at 6 pm (4) Alzheimer's dementia without behavioral disturbance: (5) BPH (benign prostatic hyperplasia): (6) Hydronephrosis due to obstruction of bladder: (7) Hematuria: Most likely in setting of pulled Dunbar catheter. Continue to monitor. Bladder scan as needed with flushing of Dunbar catheter. Dunbar draining clear yellow urine Plan Hypertension: Goal blood pressure less than 140/90 mmHg. Elevated on admission. Continue with carvedilol 12.5 mg twice daily. Add amlodipine 10 mg oral daily. If needed will add hydralazine. IV hydralazine 10 mg every 4 hours as needed for systolic blood pressure more than 160 mmHg. History of Alzheimer. CODE STATUS: Son Mr. Balta Duval will be the DPOA. DNR/DNI. Cardiac regular diet Protonix for PUD prophylaxis Heparin 5000 every 12 hourly for DVT prophylaxis Disposition: Family interested in SNF placement at this time. THey have concerns that due to pt's dementia, patient may pull out dunbar. He does not wander off and stays at home and lives alone at this time. However son goes daily to check up on him and make sure that patient has food to eat. He requires assistance with grocery shopping and cooking however he can eat by himself. Son states he cannot take care of patient at home anymore and requires 24/7 care. ax survey worker notified. Attestations 2 Medical Necessity Statement*: SNF placement pending Diagnoses Acute urinary retention R33.8 Acute kidney injury N17.9 Hypokalemia E87.6 Alzheimer's dementia without behavioral disturbance G30.9; F02.80 BPH (benign prostatic hyperplasia) N40.0 Hydronephrosis due to obstruction of bladder N13.30; N32.0 Hematuria R31.9
--- NOTE | 2024-04-29 12:37 | PC.SOCIAL ---
IMM Updated Updated pt on IMM. No questions voiced. Provided pt a copy. Initialed, dated, & timed a copy & placed in chart.
[2024-04-29 15:40] VITALS: BP 148/75; PULSE 82; RESP 17; TEMP 36.6; O2SAT 94
[2024-04-29] MEDS: atorvastatin 40 mg Tablet 20 MG PO (16:50)
[2024-04-29 19:01] LABS: Anion Gap 12.6 (5-19); Blood Urea Nitrogen 10 mg/dL (8-23); Calcium 7.4 mg/dL (8.5-10.5); Carbon Dioxide 24 mmol/L (22-29); Chloride 105 mmol/L (98-107); Creatinine Clr Calc Pharmacy 57.6375; Glucose 187 mg/dL (65-115); Osmolality Calculated 290 mOsm/kg (285-295); Potassium 3.6 mmol/L (3.5-5.1); Sodium 138 mmol/L (136-145)
[2024-04-29 20:00] VITALS: BP 119/66; PULSE 91; RESP 18; TEMP 36.8; O2SAT 95
[2024-04-30] VITALS: BP 129/71; PULSE 84; RESP 18; TEMP 36.9; O2SAT 95
[2024-04-30 03:22] LABS: Basophils # 0.1 10^3/uL (0.0-0.1); Basophils % 0.5 %; Eosinophils # 0.4 10^3/uL (0.0-0.8); Eosinophils % 4.4 %; Hematocrit 34.3 % (37-53); Lymphocytes # 1.6 10^3/uL (0.8-4.8); Lymphocytes % 16.8 %; Mean Corpuscular HGB Conc 33.5 g/dL (30-55); Mean Corpuscular Hemoglobin 30.5 pg (27-33); Mean Platelet Volume 9.9 fL (7.4-10.4); Monocytes # 0.8 10^3/uL (0.2-0.9); Monocytes % 8.3 %; Neutrophils # 6.56 10^3/uL (1.8-7.7); Neutrophils % 69.2 %; Nucleated Red Blood Cells % 0 %; Platelet Count 442 10^3/cmm (157-399); Red Blood Count 3.77 10^6/uL (3.85-5.65); Red Cell Distribution Width 13.6 % (12.1-15.1); White Blood Count 9.49 10^3/uL (3.29-11.43)
[2024-04-30 03:41] LABS: Anion Gap 12.3 (5-19); Blood Urea Nitrogen 9 mg/dL (8-23); Calcium 7.3 mg/dL (8.5-10.5); Carbon Dioxide 25 mmol/L (22-29); Chloride 105 mmol/L (98-107); Creatinine Clr Calc Pharmacy 57.6375; Glucose 100 mg/dL (65-115); Magnesium 1.4 mg/dL (1.7-2.3); Osmolality Calculated 287 mOsm/kg (285-295); Potassium 3.3 mmol/L (3.5-5.1); Sodium 139 mmol/L (136-145)
[2024-04-30 04:00] VITALS: BP 145/73; PULSE 96; RESP 17; TEMP 36.9; O2SAT 95
[2024-04-30 07:44] VITALS: BP 144/68; PULSE 87; RESP 17; TEMP 36.5; O2SAT 95
[2024-04-30] MEDS: tamsulosin 0.4 mg Capsule PO (09:40)
[2024-04-30] MEDS: hyDRALAzine 25 mg Tablet PO (09:40)
[2024-04-30] MEDS: carvedilol 12.5 mg Tablet PO (09:40)
[2024-04-30] MEDS: pantoprazole DR 40 mg Tablet PO (09:40)
[2024-04-30] MEDS: amlodipine 5 mg Tablet 10 MG PO (09:40)
[2024-04-30] MEDS: sodium chloride 0.9% 1,000 ML 75 ML IV (09:41)
[2024-04-30 11:08] VITALS: BP 138/64; PULSE 85; RESP 18; TEMP 36.9; O2SAT 96
--- NOTE | 2024-04-30 11:36 | P.PN_ITS ---
Subjective 2 Subjective: seen today no acute events overnight Vitals/I&O/Wt Last Vital Signs Temp 98.5 F 04/30/24 11:08 Pulse 85 04/30/24 11:08 Resp 18 04/30/24 11:08 BP 138/64 04/30/24 11:08 Pulse Ox 96 04/30/24 11:08 O2 Del Method Room Air 04/30/24 11:08 04/29/24 04/30/24 04/30/24 22:59 06:59 14:59 Intake Total 1480 / 2200 1427.5 / 1427.5 Output Total 1350 / 1850 500 / 2350 Balance 130 / 350 -500 / -150 1427.5 / 1427.5 Weight last 48 hrs Weight 69.003 kg Weight 70.125 kg Weight 67.67 kg Physical Exam 2 Narrative: General: No acute distress, AO x 1-2, baseline HEENT: PERRLA, pupils bilaterally equal and reactive Chest: Normal vesicular breath sounds, no added sounds, equal good air entry bilaterally CVS: S1-S2 regular, no murmurs, no tachycardia, no gallops, no rubs Abdomen: Soft, nontender, no organomegaly, bowel sounds present Neuro: No focal deficits, no facial deformity, AO x3, power 5/5 in all limbs Urinary Catheter Management: Dunbar: Cath Placed During This Visit: yes Reason for Continuing Indwelling Catheter: Acute Urinary Retention or Obstruction Urinary Catheter Date of Insertion: 04/27/24 Data 04/30/24 03:08 04/30/24 03:08 Micro: Microbiology 04/27/24 18:00 Urine Culture - Final Urine,Clean Catch A&P Assessment and plan (1) Acute urinary retention: Insetting of bladder outlet obstruction. Dunbar placed. CT of abdomen and pelvis showing severe bilateral hydronephrosis. Appreciate urinalysis. For now continue with Dunbar. Most likely will be discharged on Dunbar catheter for next few weeks with a follow-up with urology and outpatient abdominal imaging for further evaluation of resolution of hydronephrosis. Continue with Flomax 0.4 mg BID (2) Acute kidney injury: In setting of bladder outlet obstruction. Dunbar placed. Baseline creatinine less than 1. Resolving. Down to 1.3. Medical reconciliation done for nephrotoxic drugs. Hold off on lisinopril. Monitor BMP daily. Normal saline at 75 cc/h. DC fluids today BELKIS resolved (3) Hypokalemia: Along with hypomagnesemia. 40 BID K PO ordered today recheck BMP at 6 pm (4) Alzheimer's dementia without behavioral disturbance: (5) BPH (benign prostatic hyperplasia): (6) Hydronephrosis due to obstruction of bladder: (7) Hematuria: Most likely in setting of pulled Dunbar catheter. Continue to monitor. Bladder scan as needed with flushing of Dunbar catheter. Dunbar draining clear yellow urine Plan Hypertension: Goal blood pressure less than 140/90 mmHg. Elevated on admission. Continue with carvedilol 12.5 mg twice daily. Add amlodipine 10 mg oral daily. If needed will add hydralazine. IV hydralazine 10 mg every 4 hours as needed for systolic blood pressure more than 160 mmHg. History of Alzheimer. CODE STATUS: Son Mr. Balta Duval will be the DPOA. DNR/DNI. Cardiac regular diet Protonix for PUD prophylaxis Heparin 5000 every 12 hourly for DVT prophylaxis Disposition: Family interested in SNF placement at this time. THey have concerns that due to pt's dementia, patient may pull out dunbar. He does not wander off and stays at home and lives alone at this time. However son goes daily to check up on him and make sure that patient has food to eat. He requires assistance with grocery shopping and cooking however he can eat by himself. Son states he cannot take care of patient at home anymore and requires 24/7 care. odd job worker notified. 04/30 - awaiting NH placement - will need urology referal at discharge Attestations 2 Medical Necessity Statement*: SNF placement pending Diagnoses Acute urinary retention R33.8 Acute kidney injury N17.9 Hypokalemia E87.6 Alzheimer's dementia without behavioral disturbance G30.9; F02.80 BPH (benign prostatic hyperplasia) N40.0 Hydronephrosis due to obstruction of bladder N13.30; N32.0 Hematuria R31.9
[2024-04-30] MEDS: potassium chloride ER 20 mEq Tablet 40 MEQ PO (12:04)
[2024-04-30] MEDS: magnesium sulfate premix 4 GM/100 ML PREMIX IV (12:05)
--- NOTE | 2024-04-30 13:03 | PM.DCS ---
Discharge Providers Date of Admission: 04/27/24 17:58 Date of Discharge: April 30, 2024 Attending Provider at Admission: Simba Lai MD Attending Provider at Discharge: Gisella Ledbetter MD Primary Care Provider: Garry Strong DO Diagnoses at Discharge Discharge Diagnosis (1) Acute urinary retention: Status: Acute (2) Acute kidney injury: Status: Resolved (3) Hypokalemia: Status: Resolved (4) Alzheimer's dementia without behavioral disturbance: Status: Acute (5) BPH (benign prostatic hyperplasia): Status: Acute (6) Hydronephrosis due to obstruction of bladder: Status: Acute (7) Hematuria: Status: Resolved Reason for Visit Reason for Visit: cp Hospital Course Hospital Course Patient was admitted for hypertension and right flank pain. He was brought to the ER found to have acute urinary retention and thereafter CT abdomen pelvis was done to rule out obstructive uropathy. Patient was diagnosed with bilateral hydronephrosis bladder outlet obstruction. Dunbar catheter was placed. He also had a severe BELKIS secondary to above. Kidney function normalized after placement of Dunbar catheter. Electrolytes were repleted. [facility] since family could not take care of him at home given that he had a Dunbar at this point. Patient to follow-up with urology as an outpatient. Medications were adjusted during hospitalization. Metoprolol tartrate was stopped and patient was placed on carvedilol instead. Patient discharged to [facility]. Physical Exam Narrative: General: No acute distress, AO x 1-2, baseline HEENT: PERRLA, pupils bilaterally equal and reactive Chest: Normal vesicular breath sounds, no added sounds, equal good air entry bilaterally CVS: S1-S2 regular, no murmurs, no tachycardia, no gallops, no rubs Abdomen: Soft, nontender, no organomegaly, bowel sounds present Neuro: No focal deficits, no facial deformity, AO x3, power 5/5 in all limbs Urinary Catheter Management: Dunbar: Cath Placed During This Visit: yes Reason for Continuing Indwelling Catheter: Acute Urinary Retention or Obstruction Urinary Catheter Date of Insertion: 04/27/24 Discharge Data Studies Completed and Pending Completed Studies During Hospitalization Category Date Time Status CT abdomen pelvis wo con [id number] Stat Cat Scan 04/27/24 17:00 Completed XR chest 1V portable [id number] Stat Exams 04/27/24 11:47 Completed Pending at discharge Category Date Time Status Basic Metabolic Panel AM LABS Lab 05/01/24 04:00 Ordered Magnesium AM LABS Lab 05/01/24 04:00 Ordered SARS Covid-2 Antigen Stat Lab 04/30/24 12:00 Uncollected Radiology Impressions Chest X-Ray 04/27/24 11:47 IMPRESSION: 1. No acute cardiopulmonary finding. Abdomen/Pelvis CT 04/27/24 17:00 IMPRESSION: 1. Marked urinary bladder wall thickening 2. Severe bilateral hydronephrosis 3. Right perinephric stranding and retroperitoneal fluid which could be due to extravasated urine from the urinary tract obstruction. 4. Left inguinal hernia containing a portion of the sigmoid colon without obstruction 5. Hepatic cysts 6. Other non urgent findings as described above COMMENTS: Consistent with the [employer]'s Incidental Findings Committee white paper (J Am Alex Radiol 2018): Any incidental renal lesion less than 1 cm or classified as too small to characterize, or any incidental cystic renal lesion characterized as simple-appearing, is likely benign. No follow-up imaging is recommended for these lesions per consensus recommendations based on imaging criteria. Laboratory Results WBC 9.49 10^3/uL (3.29-11.43) 04/30/24 03:08 RBC 3.77 10^6/uL (3.85-5.65) L 04/30/24 03:08 Hgb 11.50 g/dL (11.27-16.99) 04/30/24 03:08 Hct 34.3 % (37-53) L 04/30/24 03:08 MCV 91.0 fl (82-101) 04/30/24 03:08 MCH 30.5 pg (27-33) 04/30/24 03:08 MCHC 33.5 g/dL (30-55) 04/30/24 03:08 RDW 13.6 % (12.1-15.1) 04/30/24 03:08 Plt Count 442 10^3/cmm (157-399) H 04/30/24 03:08 MPV 9.9 fL (7.4-10.4) 04/30/24 03:08 Neut % (Auto) 69.2 % 04/30/24 03:08 Lymph % (Auto) 16.8 % 04/30/24 03:08 Simpson % (Auto) 8.3 % 04/30/24 03:08 Eos % (Auto) 4.4 % 04/30/24 03:08 Baso % (Auto) 0.5 % 04/30/24 03:08 Neut # (Auto) 6.56 10^3/uL (1.8-7.7) 04/30/24 03:08 Lymph # (Auto) 1.6 10^3/uL (0.8-4.8) 04/30/24 03:08 Simpson # (Auto) 0.8 10^3/uL (0.2-0.9) 04/30/24 03:08 Eos # (Auto) 0.4 10^3/uL (0.0-0.8) 04/30/24 03:08 Baso # (Auto) 0.1 10^3/uL (0.0-0.1) 04/30/24 03:08 Nucleated RBC % (auto) 0 % 04/30/24 03:08 Nucleated RBCs # 0.0 /100WBC 04/30/24 03:08 Sodium 139 mmol/L (136-145) 04/30/24 03:08 Potassium 3.3 mmol/L (3.5-5.1) L 04/30/24 03:08 Chloride 105 mmol/L (98-107) 04/30/24 03:08 Carbon Dioxide 25 mmol/L (22-29) 04/30/24 03:08 Anion Gap 12.3 (5-19) 04/30/24 03:08 BUN 9 mg/dL (8-23) 04/30/24 03:08 Creatinine 0.9 mg/dL (0.7-1.2) 04/30/24 03:08 GFR Calculation Not Reportable 04/30/24 03:08 Glucose 100 mg/dL (65-115) 04/30/24 03:08 Calculated Osmolality 287 mOsm/kg (285-295) 04/30/24 03:08 Calcium 7.3 mg/dL (8.5-10.5) L 04/30/24 03:08 Phosphorus 3.3 mg/dL (2.5-4.5) 04/28/24 04:43 Magnesium 1.4 mg/dL (1.7-2.3) L 04/30/24 03:08 Total Bilirubin 1.2 mg/dL (0.15-1.2) 04/29/24 04:56 AST 27 U/L (0-40) 04/29/24 04:56 ALT 13 U/L (0-41) 04/29/24 04:56 Alkaline Phosphatase 66 U/L (40-130) 04/29/24 04:56 Troponin T Baseline 41 ng/L (0-15) H 04/27/24 11:58 Troponin T 120 Minute 36.22 ng/L (0-15) H 04/27/24 13:30 Delta Troponin T -4.78 ABS# (0-10) L 04/27/24 13:30 Troponin T Hi Sens 6Hr 46.46 ng/L (0-15) H 04/27/24 17:33 Troponin T Hi Sens 6Hr Delta 5.46 ng/L (0-12) 04/27/24 17:33 Total Protein 5.5 g/dL (6.6-8.7) L 04/29/24 04:56 Albumin 3.0 g/dL (3.5-5.2) L 04/29/24 04:56 Globulin 2.5 g/dL (1.3-4.6) 04/29/24 04:56 Procalcitonin 0.07 ng/mL (0-0.5) 04/27/24 16:39 TSH 2.77 uIU/mL (0.27-4.20) 04/27/24 17:33 Urine Color Red (Yellow) A 04/27/24 18:00 Urine Appearance Clear (CLEAR) 04/27/24 18:00 Urine pH 7.0 (5-7) 04/27/24 18:00 Ur Specific Bonner 1.005 (1.005-1.030) 04/27/24 18:00 Urine Protein 1+ (Negative) A 04/27/24 18:00 Urine Glucose (UA) Negative (Normal) 04/27/24 18:00 Urine Ketones Trace (Negative) 04/27/24 18:00 Urine Blood 3+ (Negative) A 04/27/24 18:00 Urine Nitrate Negative (Negative) 04/27/24 18:00 Urine Bilirubin Negative (Negative) 04/27/24 18:00 Urine Urobilinogen 1.0 mg/dL (Negative) 04/27/24 18:00 Ur Leukocyte Esterase Negative (Negative) 04/27/24 18:00 Urine RBC >100 /hpf (0-2) H 04/27/24 18:00 Urine WBC 0-5 /hpf (0-5) 04/27/24 18:00 Ur Squamous Epith Cells 0-5 /hpf (0-5) 04/27/24 18:00 Amorphous Sediment Not Reportable 04/27/24 18:00 Urine Bacteria None seen /hpf (NONE) 04/27/24 18:00 Hyaline Casts 1.21 /lpf 04/27/24 18:00 Vitals Last Vital Signs Temp 98.5 F 04/30/24 11:08 Pulse 85 04/30/24 11:08 Resp 18 04/30/24 11:08 BP 138/64 04/30/24 11:08 Pulse Ox 96 04/30/24 11:08 O2 Del Method Room Air 04/30/24 11:08 Discharge Plan Discharge Patient Disposition: Xfer SNF Condition: Stable Prescriptions: New carvedilol 12.5 mg Tablet 12.5 mg PO BID Qty: 30 0RF amlodipine 5 mg Tablet 5 mg PO DAILY Qty: 30 0RF tamsulosin 0.4 mg Capsule 0.4 mg PO BID Qty: 60 0RF Continued lisinopril 40 mg tablet 40 mg PO DAILY simvastatin 80 mg Tablet 40 mg PO QPM cholecalciferol (vitamin D3) [Vitamin D3] 50 mcg (2,000 unit) Tablet 2,000 unit PO DAILY metoprolol tartrate 25 mg Tablet 25 mg PO BID@0900,2100 Qty: 60 0RF Discharge Orders: Discharge Order (Routine); Ordered 04/30/24 Ordered By: Gisella Ledbetter Referrals: [facility] [Outside] [place] [Referring] - 1-3 days (We have notified your physician's clinic of the need for a follow-up appointment to be scheduled. If you have not heard from them within the next 2 business days, please call them directly. ) Garry Strong, DO [Primary Care Provider] - Discharge Diet: Regular Discharge Activity: Resume usual activity Patient Instructions: Amlodipine (By mouth), Tamsulosin (By mouth), Carvedilol (By mouth), Pain Management Activity Restrictions/Additional Instructions: Must keep dunbar catheter in place. Pt to see urology after discharge for further management. Discharge Attestations Time Spent in Discharge Care*: greater than 30 min Status at Discharge: Cognitive status at discharge: moderately impaired cognition, Behavioral status at discharge: cooperative, Quality Metrics Clinical Quality Measures [ No reported AMI, CVA or VTE this stay] Coding Level of Care Code Acute Code for Chg Fwd Diagnoses Acute urinary retention R33.8 Acute kidney injury N17.9 Hypokalemia E87.6 Alzheimer's dementia without behavioral disturbance G30.9; F02.80 BPH (benign prostatic hyperplasia) N40.0 Hydronephrosis due to obstruction of bladder N13.30; N32.0 Hematuria R31.9
== END 2024-04-30 14:15 | disposition skilled nursing facility (03) | DRG 683 ==
LOC: ER 12:33 → ER IP 17:58 → MEDSURG 18:47
PROVIDERS: Admitting Provider Student in an Organized Health Care Education/Training Program; Emergency Provider Family Medicine; PCP Emergency Medicine Emergency Medical Services; Visit Provider Internal Medicine
DX: N17.9 Acute kidney failure, unspecified (principal); N13.8 Other obstructive and reflux uropathy; S37.30XA Unspecified injury of urethra, initial encounter; E87.6 Hypokalemia; N40.1 Benign prostatic hyperplasia with lower urinary tract symptoms; R33.8 Other retention of urine; E86.0 Dehydration; E83.42 Hypomagnesemia; G30.9 Alzheimer's disease, unspecified; F02.80 Dementia in other diseases classified elsewhere, unspecified severity, without behavioral disturbance, psychotic disturbance, mood disturbance, and anxiety; I10 Essential (primary) hypertension; I45.10 Unspecified right bundle-branch block; Z66 Do not resuscitate; N13.30 Unspecified hydronephrosis; R31.9 Hematuria, unspecified; Y84.6 Urinary catheterization as the cause of abnormal reaction of the patient, or of later complication, without mention of misadventure at the time of the procedure; Y92.238 Other place in hospital as the place of occurrence of the external cause; X58.XXXA Exposure to other specified factors, initial encounter
CPT/HCPCS: 36415; 71045; 74176; 80048; 80053; 81003; 81015; 83735; 84100; 84132; 84145; 84443; 84484; 85025; 87086; 93005; 94664; 96361; 96372; 96374; 96375; 99285; J0360; J1644; J2270; J3475; J7030